=== PATIENT | female | born 1940 | race Caucasian/White ===

== ENCOUNTER → 2019-03-27 10:15 | Outpatient (BNVA) | payer MEDICARE, OTHER, SELFPAY | PROVIDERS: Family Provider Family Medicine; PCP Family Medicine; Visit Provider Family Medicine | DX: S52.612A Displaced fracture of left ulna styloid process, initial encounter for closed fracture (principal); S52.92XA Unspecified fracture of left forearm, initial encounter for closed fracture; W10.1XXA Fall (on)(from) sidewalk curb, initial encounter; M25.532 Pain in left wrist | CPT/HCPCS: 73130 ==

== ENCOUNTER → 2020-08-04 10:34 | Outpatient (BNVA) | payer MEDICARE, OTHER, SELFPAY | PROVIDERS: Family Provider Family Medicine; PCP Family Medicine; Visit Provider Family Medicine | DX: Z00.00 Encounter for general adult medical examination without abnormal findings (principal); E03.8 Other specified hypothyroidism; R51.9 Headache, unspecified; H81.10 Benign paroxysmal vertigo, unspecified ear | CPT/HCPCS: 80053; 84443; 85025 ==

== ENCOUNTER 2021-04-04 23:48 | Emergency (ER) | payer MEDICARE, OTHER, SELFPAY ==
[2021-04-05] VITALS: PULSE 96; RESP 22; TEMP 37.2; O2SAT 87
--- NOTE | 2021-04-05 00:05 | XRR_ITS ---
PROCEDURE INFORMATION: Exam: XR Chest Exam date and time: 04/05/2021 12:05 AM Age: 80 years old Clinical indication: Dyspnea; Additional info: SOB allergic rxn TECHNIQUE: Imaging protocol: XR of the chest. Views: 1 view. COMPARISON: CR Chest 1 [place] [id number] 05/08/2016 8:56 PM FINDINGS: Lungs: Emphysematous lung changes. Negative for space consolidation. Pleural spaces: Unremarkable. No pleural effusion. No pneumothorax. Heart/Mediastinum: Unremarkable. No cardiomegaly. Bones/joints: Multiple nonacute left posterior rib fractures. XR/XR chest 1V [id number] IMPRESSION: No focal acute pulmonary disease identified.
[2021-04-05] MEDS: diphenhydrAMINE 50 mg/mL SDV 1mL IVP (00:16)
[2021-04-05] MEDS: EPINEPHrine 1 mg/mL INJ (00:16)
[2021-04-05] MEDS: famotidine 20 mg/2 mL INJ 40 MG IVP (00:16)
[2021-04-05 00:20] LABS: Basophils % 0.3 %; Eosinophils # 0.1 10^3/uL (0.0-0.8); Eosinophils % 1.1 %; Hematocrit 53.5 % (37.0-47.0); Hemoglobin 17.9 g/dL (11.5-15.3); Lymphocytes # 4.1 10^3/uL (0.8-4.8); Lymphocytes % 42.6 %; Mean Corpuscular HGB Conc 33.5 g/dL (30.0-36.0); Mean Corpuscular Volume 92.7 fl (81-99); Mean Platelet Volume 11.1 fL (7.4-10.4); Monocytes # 0.5 10^3/uL (0.2-0.9); Monocytes % 5.5 %; Neutrophils # 4.83 10^3/uL (1.8-7.7); Neutrophils % 50.3 %; Nucleated Red Blood Cells % 0 %; Platelet Count 298 10^3/cmm (130-400); Red Blood Count 5.77 10^6/uL (4.1-5.3); White Blood Count 9.6 10^3/uL (4.0-10.0)
[2021-04-05] MEDS: LORazepam 2 mg/mL INJ 1 mL 0.5 MG IVP (00:20)
[2021-04-05 00:36] LABS: Alanine Aminotransferase 13 U/L (0-33); Albumin Level 4.7 g/dL (3.5-5.2); Alkaline Phosphatase 103 IU/L (35-105); Anion Gap 23.6 (5-19); Aspartate Amino Transferase 19 U/L (0-32); Blood Urea Nitrogen 20 mg/dL (8-23); Calcium 10.5 mg/dL (8.5-10.5); Carbon Dioxide 21 mmol/L (22-29); Chloride 101 mmol/L (98-107); Globulin 2.4 g/dL (1.3-4.6); Glucose 147 mg/dL (65-115); Osmolality Calculated 299 mOsm/kg (285-295); Potassium 3.6 mmol/L (3.5-5.1); Sodium 142 mmol/L (136-145); Total Bilirubin 0.3 mg/dL (0.15-1.2); Total Protein 7.1 g/dL (6.6-8.7)
[2021-04-05] MEDS: EPINEPHrine 1 mg/mL INJ 0.4 MG IM (00:51)
[2021-04-05 01:57] VITALS: BP 100/64; PULSE 72; RESP 16; O2SAT 95
--- NOTE | 2021-04-05 01:57 | ED_ITS ---
HPI - Allergic Reaction General: Chief complaint: Allergic Reaction Stated complaint: allergic reaction Time Seen by Provider: 04/05/21 00:00 Source: patient and family History of Present Illness: HPI narrative: 80-year-old female who ate a new restaurant around 630 this evening. At around 10 or 1030 she began to get an upset stomach. She vomited. She then began to itch. Widespread rash was noted. Trouble breathing came next, with a full feeling of her mouth and tongue. No treatment prior to arrival. She has not had the symptoms prior. Onset (ago): hour(s) Exposure: food Associated symptoms: Reports difficulty breathing, facial swelling, itching, lip swelling, nausea, rash, tongue swelling and vomiting; Deny abdominal pain or dysphagia Severity: moderate Treatment prior to arrival: none Previous Allergic Reaction History: none Review of Systems Const: Denies: fever(s) ENMT: Denies: throat pain Card: Denies: chest pain Resp: Reports: dyspnea; Denies: productive cough or non-productive cough GI: Reports: nausea and vomiting; Denies: abdominal pain or dysphagia Skin/Breast: Reports: rash Neuro: Denies: headache(s) All/Imm: Reports: tongue swelling and facial swelling PFSH ED PFSH: Medical History Benign positional vertigo Hypothalamic hypothyroidism Recurrent occipital headache Social History Smoking and tobacco status: never smoked Alcohol intake: current Alcohol intake frequency: holidays/special occasions only Physical Exam Const: GENERAL APPEARANCE: cooperative, in distress and ill appearing HENMT: COMMON NORMALS: normocephalic and Normal external nose present HEAD & SCALP: normocephalic FACE & SINUS: no edema NOSE: Normal external nose present and Normal nares present MOUTH: lip abnormal (Lower lip edema) and tongue abnormal edematous (Minimal) THROAT: posterior oropharynx normal Eye: COMMON NORMALS: Equal, round and reactive pupils present and EOMs intact bilaterally PUPIL: Yes Equal, round and reactive pupils present Neck/C-Spine: COMMON NORMALS: full ROM GENERAL: No anterior neck swelling Chest: COMMONS NORMALS: normal inspection of the chest Resp: EFFORT & INSPECTION: Yes tachypneic, Yes respiratory distress (Mild) and Yes uses accessory muscles AUSCULTATION: no rhonchi and no wheezes Cardio: COMMON NORMALS: regular rhythm RATE: tachycardic RHYTHM: regular rhythm GI: COMMON NORMALS: Normal to inspection, nondistended, normoactive bowel sounds present and Soft to palpation PALPATION: Yes Soft to palpation Neuro: CARLOS COMA SCALE: document GCS findings Carlos coma scale eye opening: Spontaneous Carlos coma scale verbal response: Orientated Carlos coma scale motor response: Obey commands Carlos coma scale total score: 15 Skin: NARRATIVE SKIN EXAM: Widespread papular rash present across chest, base of the neck, and some extremities Course Vital Signs: Vital signs: Vital Signs Temperature 98.9 F 04/05/21 00:00 Pulse Rate 72 04/05/21 01:57 Respiratory Rate 16 04/05/21 01:57 Blood Pressure 100/64 04/05/21 01:57 Pulse Oximetry 95 04/05/21 01:57 MDM - Allergic Reaction Medical Decision Making 80-year-old female with anaphylactoid type allergic reaction to likely some substance she ingested new [place] restaurant she ate out earlier in the evening. No exposure to drugs, new medications, new cleaning or hygiene products. Distress was significant on arrival. Patient was given 0.4 mg of subcutaneous epinephrine, 50 mg IV Benadryl, 40 mg IV Pepcid, and 125 mg Solu- Medrol. She was quite anxious and will shaky, so 0.5 mg Ativan IV was also used. Her symptoms are essentially resolved at this point. Saturations are 97% on room air, heart rate is 71 sinus. Laboratory shows a hemoglobin of 18, creatinine 1.1. BMP is otherwise essentially normal. Chest x-ray is normal. Lab Data : 04/05/21 00:03 04/05/21 00:03 Radiology Impressions Chest X-Ray 04/05/21 00:05 IMPRESSION: No focal acute pulmonary disease identified. Laboratory Results WBC 9.6 10^3/uL (4.0-10.0) 04/05/21 00:03 RBC 5.77 10^6/uL (4.1-5.3) H 04/05/21 00:03 Hgb 17.9 g/dL (11.5-15.3) H 04/05/21 00:03 Hct 53.5 % (37.0-47.0) H 04/05/21 00:03 MCV 92.7 fl (81-99) 04/05/21 00:03 MCH 31.0 pg (28.0-34.0) 04/05/21 00:03 MCHC 33.5 g/dL (30.0-36.0) 04/05/21 00:03 RDW 12.0 % (12.1-15.1) L 04/05/21 00:03 Plt Count 298 10^3/cmm (130-400) 04/05/21 00:03 MPV 11.1 fL (7.4-10.4) H 04/05/21 00:03 Neut % (Auto) 50.3 % 04/05/21 00:03 Lymph % (Auto) 42.6 % 04/05/21 00:03 [place] % (Auto) 5.5 % 04/05/21 00:03 Eos % (Auto) 1.1 % 04/05/21 00:03 Baso % (Auto) 0.3 % 04/05/21 00:03 Neut # (Auto) 4.83 10^3/uL (1.8-7.7) 04/05/21 00:03 Lymph # (Auto) 4.1 10^3/uL (0.8-4.8) 04/05/21 00:03 [place] # (Auto) 0.5 10^3/uL (0.2-0.9) 04/05/21 00:03 Eos # (Auto) 0.1 10^3/uL (0.0-0.8) 04/05/21 00:03 Baso # (Auto) 0.0 10^3/uL (0.0-0.1) 04/05/21 00:03 Nucleated RBC % (auto) 0 % 04/05/21 00:03 Nucleated RBCs # 0.0 /100WBC 04/05/21 00:03 Sodium 142 mmol/L (136-145) 04/05/21 00:03 Potassium 3.6 mmol/L (3.5-5.1) 04/05/21 00:03 Chloride 101 mmol/L (98-107) 04/05/21 00:03 Carbon Dioxide 21 mmol/L (22-29) L 04/05/21 00:03 Anion Gap 23.6 (5-19) H 04/05/21 00:03 BUN 20 mg/dL (8-23) 04/05/21 00:03 Creatinine 1.1 mg/dL (0.5-0.9) H 04/05/21 00:03 GFR Calculation Not Reportable 04/05/21 00:03 Glucose 147 mg/dL (65-115) H 04/05/21 00:03 Calculated Osmolality 299 mOsm/kg (285-295) H 04/05/21 00:03 Calcium 10.5 mg/dL (8.5-10.5) 04/05/21 00:03 Total Bilirubin 0.3 mg/dL (0.15-1.2) 04/05/21 00:03 AST 19 U/L (0-32) 04/05/21 00:03 ALT 13 U/L (0-33) 04/05/21 00:03 Alkaline Phosphatase 103 IU/L (35-105) 04/05/21 00:03 C-Reactive Protein 3.0 mg/L (0.0-4.9) 04/05/21 00:03 Total Protein 7.1 g/dL (6.6-8.7) 04/05/21 00:03 Albumin 4.7 g/dL (3.5-5.2) 04/05/21 00:03 Globulin 2.4 g/dL (1.3-4.6) 04/05/21 00:03 Critical Care Time Critical Care Time: Critical Care Time: Yes Total Critical Care Time: 36 Attestation: This case had a high probability of a clinically significant, sudden, or life threatening deterioration of this patient's condition which required my full and direct attention, intervention and personal management. Time is independent of any procedures performed. Discharge Plan Discharge Patient Disposition: Home Clinical Impression: Allergic reaction, Anaphylaxis Condition: Stable Prescriptions: New EpiPen 2-Jethro 0.3 mg/0.3 mL auto-injector 0.3 mg IM Q15M PRN (Reason: anaphylaxis) Qty: 2 0RF Rx Instructions: for 2 doses Benadryl 25 mg capsule 25 mg PO Q6H PRN (Reason: allergic reaction) Qty: 30 0RF Medrol (Jethro) 4 mg tablets,dose pack See Rx Instructions .ROUTE .COMPLEX Qty: 21 0RF Rx Instructions: orally per package directions No Action levothyroxine 100 mcg tablet See Rx Instructions .ROUTE .COMPLEX Qty: 90 2RF Dose Instruction: Take 1 tablet by mouth once daily Rx Instructions: Take 1 tablet by mouth once daily Discharge Orders: Discharge ED (Routine); Ordered 04/05/21 Ordered By: Yogi Wellington Referrals: Saray Breen MD [Primary Care Provider] - 1-3 days Patient Instructions: Anaphylaxis (ED), General Allergic Reaction (ED) Activity Restrictions/Additional Instructions: Medication as directed. Take the Medrol according to package instructions. Use Benadryl 25 mg every 6 hours for the next 48 hours, then as needed. Carry the EpiPen with you at all times, if you must use it, you must come to the emergency room following. return immediately to the emergency department for tongue or lip swelling, facial swelling or edema, significant change in your voice, shortness of breath, inability to control rash, any other concerning symptoms. Coding Level of Care Code ED Cathodic Protection Technician for Ignacio Fwd Exam Comprehensive
== END 2021-04-05 02:23 | disposition home or self-care (01) ==
PROVIDERS: Emergency Provider Emergency Medicine; PCP Family Medicine
DX: T78.2XXA Anaphylactic shock, unspecified, initial encounter (principal); T78.40XA Allergy, unspecified, initial encounter
CPT/HCPCS: 71045; 80053; 85025; 86140; 96372; 96374; 96375; 99283; J0171; J1200; J2060; J2930; J3490

== ENCOUNTER → 2021-04-06 15:48 | Outpatient (BNVA) | payer MEDICARE, OTHER, SELFPAY | PROVIDERS: PCP Family Medicine; Visit Provider Family Medicine | DX: D75.1 Secondary polycythemia (principal); T78.40XA Allergy, unspecified, initial encounter; H81.10 Benign paroxysmal vertigo, unspecified ear | CPT/HCPCS: 85018 ==

== ENCOUNTER 2021-06-17 20:41 | Emergency (ER) | payer MEDICARE, OTHER, SELFPAY ==
[2021-06-17 20:46] VITALS: BP 146/89; PULSE 71; RESP 16; TEMP 36.2; O2SAT 94
--- NOTE | 2021-06-17 21:00 | ED_ITS ---
HPI - Allergic Reaction General: Chief complaint: Allergic Reaction Stated complaint: Allergic reation Time Seen by Provider: 06/17/21 20:51 Source: patient Mode of arrival: ambulatory Limitations: no limitations History of Present Illness: HPI narrative: 80-year-old female states that she has noticed a rash to her legs slight rash to her arms been going on for 2 days states she had a bad allergic reaction back in March when she had tongue swelling in the past been having epinephrine. She states that the rash to her legs appeared yesterday after golfing there pruritic in nature denies any tongue swelling or shortness of breath slight rash to the arms she take Benadryl at home no improvement Associated symptoms: Deny abdominal pain, nausea or vomiting Review of Systems Const: Denies: fever(s), chills, body aches or change in appetite Eyes: Denies: blurry vision or eye discomfort ENMT: Denies: throat pain or dental pain Card: Denies: chest pain Resp: Denies: dyspnea GI: Denies: abdominal pain, nausea, vomiting or diarrhea : Denies: dysuria Musc: Denies: neck pain or back pain Skin/Breast: Reports: rash Neuro: Denies: headache(s) Psych: Denies: depression Joaquin/Lymph: Denies: easy bruising All/Imm: Denies: urticaria PFSH ED PFSH: Medical History Benign positional vertigo Hypothalamic hypothyroidism Recurrent occipital headache Social History Smoking and tobacco status: never smoked Alcohol intake: current Alcohol intake frequency: holidays/special occasions on ly Physical Exam Const: COMMON NORMALS: no acute distress, patient oriented x3 and healthy appearing HENMT: COMMON NORMALS: normocephalic and atraumatic HEAD & SCALP: normocephalic and atraumatic Eye: COMMON NORMALS: Equal, round and reactive pupils present and EOMs intact bilaterally PUPIL: Yes Equal, round and reactive pupils present Neck/C-Spine: COMMON NORMALS: full ROM and supple Chest: COMMONS NORMALS: normal inspection of the chest and normal palpation of entire chest wall Resp: COMMON NORMALS: normal respiratory effort, No retractions, No use of accessory muscles and clear to auscultation bilaterally AUSCULTATION: clear to auscultation bilaterally Cardio: COMMON NORMALS: regular rate, regular rhythm and No murmurs present (Cardio) RATE: regular rate RHYTHM: regular rhythm GI: COMMON NORMALS: Normal to inspection, nondistended, normoactive bowel sounds present, Soft to palpation, non-tender and no masses PALPATION: Yes Soft to palpation Extremity: COMMON NORMALS: normal to inspection and full ROM Neuro: COMMON NORMALS: patient oriented x3, moves all extremities and no focal motor deficits Psych: COMMON NORMALS: mental status grossly normal, Normal thought process present and cooperative THOUGHT PROCESS: Normal thought process present Skin: COMMON NORMALS: no wounds NARRATIVE SKIN EXAM: Maculopapular rash noted to bilateral legs slight rash to arms Course Vital Signs: Vital signs: Vital Signs Temperature 97.1 F L 06/17/21 20:46 Pulse Rate 59 L 06/17/21 23:18 Respiratory Rate 18 06/17/21 23:18 Blood Pressure 146/82 06/17/21 23:18 Pulse Oximetry 95 06/17/21 23:18 MDM - Allergic Reaction Medical Decision Making Patient presents here with an allergic reaction possibly a rash to her lower extremities that has improved here with Benadryl Pepcid and the steroid lotion the rash looks little vasculitic but it did improve with steroids we will get her follow-up with dermatology blood work here is all normal she had some she states dizziness she had this with her previous rash her head CT here is normal no signs of a stroke she is to follow-up with her PCP as well and return if worsening Lab Data : 06/17/21 21:00 06/17/21 21:[address] 06/17/21 22:43 IMPRESSION: No acute intracranial pathology identified by CT. Laboratory Results WBC 8.7 10^3/uL (4.0-10.0) 06/17/21 21:00 RBC 4.82 10^6/uL (4.1-5.3) 06/17/21 21:00 Hgb 15.3 g/dL (11.5-15.3) 06/17/21 21:00 Hct 46.2 % (37.0-47.0) 06/17/21 21:00 MCV 95.9 fl (81-99) 06/17/21 21:00 MCH 31.7 pg (28.0-34.0) 06/17/21 21:00 MCHC 33.1 g/dL (30.0-36.0) 06/17/21 21:00 RDW 12.3 % (12.1-15.1) 06/17/21 21:00 Plt Count 243 10^3/cmm (130-400) 06/17/21 21:00 MPV 11.3 fL (7.4-10.4) H 06/17/21 21:00 Neut % (Auto) 70.1 % 06/17/21 21:00 Lymph % (Auto) 20.5 % 06/17/21 21:00 [place] % (Auto) 7.7 % 06/17/21 21:00 Eos % (Auto) 1.0 % 06/17/21 21:00 Baso % (Auto) 0.5 % 06/17/21 21:00 Neut # (Auto) 6.07 10^3/uL (1.8-7.7) 06/17/21 21:00 Lymph # (Auto) 1.8 10^3/uL (0.8-4.8) 06/17/21 21:00 [place] # (Auto) 0.7 10^3/uL (0.2-0.9) 06/17/21 21:00 Eos # (Auto) 0.1 10^3/uL (0.0-0.8) 06/17/21 21:00 Baso # (Auto) 0.0 10^3/uL (0.0-0.1) 06/17/21 21:00 Nucleated RBC % (auto) 0 % 06/17/21 21:00 Nucleated RBCs # 0.0 /100WBC 06/17/21 21:00 Sodium 142 mmol/L (136-145) 06/17/21 21:00 Potassium 4.0 mmol/L (3.5-5.1) 06/17/21 21:00 Chloride 102 mmol/L (98-107) 06/17/21 21:00 Carbon Dioxide 26 mmol/L (22-29) 06/17/21 21:00 Anion Gap 18.0 (5-19) 06/17/21 21:00 BUN 17 mg/dL (8-23) 06/17/21 21:00 Creatinine 0.9 mg/dL (0.5-0.9) 06/17/21 21:00 GFR Calculation Not Reportable 06/17/21 21:00 Glucose 93 mg/dL (65-115) 06/17/21 21:00 Calculated Osmolality 295 mOsm/kg (285-295) 06/17/21 21:00 Calcium 9.8 mg/dL (8.5-10.5) 06/17/21 21:00 Total Bilirubin 0.4 mg/dL (0.15-1.2) 06/17/21 21:00 AST 19 U/L (0-32) 06/17/21 21:00 ALT 11 U/L (0-33) 06/17/21 21:00 Alkaline Phosphatase 72 IU/L (35-105) 06/17/21 21:00 Total Protein 7.5 g/dL (6.6-8.7) 06/17/21 21:00 Albumin 4.7 g/dL (3.5-5.2) 06/17/21 21:00 Globulin 2.8 g/dL (1.3-4.6) 06/17/21 21:00 Urine Color Yellow (Yellow) 06/17/21 21:50 Urine Appearance Sl hazy (CLEAR) 06/17/21 21:50 Urine pH 5 (5-7) 06/17/21 21:50 Ur Specific [place] 1.025 (1.005-1.030) 06/17/21 21:50 Urine Protein Neg (Negative) 06/17/21 21:50 Urine Glucose (UA) Norm (Normal) 06/17/21 21:50 Urine Ketones Negative (Negative) 06/17/21 21:50 Urine Blood Neg (Negative) 06/17/21 21:50 Urine Nitrate Negative (Negative) 06/17/21 21:50 Urine Bilirubin Neg (Negative) 06/17/21 21:50 Urine Urobilinogen Norm mg/dL (Negative) 06/17/21 21:50 Ur Leukocyte Esterase Negative (Negative) 06/17/21 21:50 Discharge Plan Discharge Clinical Impression: Rash Condition: Stable Prescriptions: New prednisone 50 mg tablet 50 mg PO DAILY Qty: 5 0RF Discontinued methylprednisolone [Medrol (Jethro)] 4 mg tablets,dose pack See Rx Instructions .ROUTE .COMPLEX Qty: 21 0RF Rx Instructions: orally per package directions No Action levothyroxine 100 mcg tablet See Rx Instructions .ROUTE .COMPLEX Qty: 90 2RF Dose Instruction: Take 1 tablet by mouth once daily Rx Instructions: Take 1 tablet by mouth once daily EpiPen 2-Jethro 0.3 mg/0.3 mL auto-injector 0.3 mg IM Q15M PRN (Reason: anaphylaxis) Qty: 2 0RF Rx Instructions: for 2 doses Benadryl 25 mg capsule 25 mg PO Q6H PRN (Reason: allergic reaction) Qty: 30 0RF Discharge Orders: Discharge ED (Routine); Ordered 06/17/21 Ordered By: Massimo Chaparro Referrals: Saray Breen MD [Primary Care Provider] - Beverly Bradley DO [Physician] - 1-3 days Discharge Diet: Advance as tolerated Discharge Activity: Resume usual activity Patient Instructions: Acute Rash (ED) Coding Level of Care Code ED Insulation Installer for Maryjaneg Fwd Exam Comprehensive
[2021-06-17] MEDS: diphenhydrAMINE 50 mg/mL SDV 1mL 25 MG IVP (21:07)
[2021-06-17] MEDS: famotidine 20 mg/2 mL INJ 40 MG IVP (21:07)
[2021-06-17 21:20] VITALS: BP 151/84; PULSE 66; RESP 18; O2SAT 96
[2021-06-17 21:24] LABS: Basophils % 0.5 %; Eosinophils # 0.1 10^3/uL (0.0-0.8); Hematocrit 46.2 % (37.0-47.0); Hemoglobin 15.3 g/dL (11.5-15.3); Lymphocytes # 1.8 10^3/uL (0.8-4.8); Lymphocytes % 20.5 %; Mean Corpuscular HGB Conc 33.1 g/dL (30.0-36.0); Mean Corpuscular Hemoglobin 31.7 pg (28.0-34.0); Mean Corpuscular Volume 95.9 fl (81-99); Mean Platelet Volume 11.3 fL (7.4-10.4); Monocytes # 0.7 10^3/uL (0.2-0.9); Monocytes % 7.7 %; Neutrophils # 6.07 10^3/uL (1.8-7.7); Neutrophils % 70.1 %; Nucleated Red Blood Cells % 0 %; Platelet Count 243 10^3/cmm (130-400); Red Blood Count 4.82 10^6/uL (4.1-5.3); Red Cell Distribution Width 12.3 % (12.1-15.1); White Blood Count 8.7 10^3/uL (4.0-10.0)
[2021-06-17 21:45] LABS: Alanine Aminotransferase 11 U/L (0-33); Albumin Level 4.7 g/dL (3.5-5.2); Alkaline Phosphatase 72 IU/L (35-105); Aspartate Amino Transferase 19 U/L (0-32); Blood Urea Nitrogen 17 mg/dL (8-23); Calcium 9.8 mg/dL (8.5-10.5); Carbon Dioxide 26 mmol/L (22-29); Chloride 102 mmol/L (98-107); Globulin 2.8 g/dL (1.3-4.6); Glucose 93 mg/dL (65-115); Osmolality Calculated 295 mOsm/kg (285-295); Sodium 142 mmol/L (136-145); Total Bilirubin 0.4 mg/dL (0.15-1.2); Total Protein 7.5 g/dL (6.6-8.7)
[2021-06-17 21:50] VITALS: BP 141/83; PULSE 64; RESP 18; O2SAT 96
[2021-06-17 22:15] LABS: Add Urine Microscopic? NO; Charge for UA Resulting for Rev
[2021-06-17 22:20] VITALS: BP 160/84; PULSE 57; RESP 18; O2SAT 98
[2021-06-17 22:32] LABS: Bilirubin Urine Neg (Negative); Blood Urine Neg (Negative); Glucose Urine UA Norm (Normal); Ketones Urine Negative (Negative); Leukocyte Esterase Urine Negative (Negative); Nitrate Urine Negative (Negative); Protein Urine Neg (Negative); Specific Gravity, Urine 1.025 (1.005-1.030); Urine Appearance SL Hazy (CLEAR); Urine Color Yellow (Yellow); Urobilinogen Urine Norm (Negative); pH Urine 5 (5-7)
[2021-06-17 22:42] VITALS: BP 171/79; PULSE 62; RESP 18; O2SAT 97
--- NOTE | 2021-06-17 22:43 | CTR_ITS ---
PROCEDURE INFORMATION: Exam: CT Head Without Contrast Exam date and time: 06/17/2021 11:07 PM Age: 80 years old Clinical indication: Walking, difficulty; Patient HX: C/O increased walking difficulty and keeping balance. ; Additional info: Difficulty walking TECHNIQUE: Imaging protocol: Computed tomography of the head without contrast. Radiation optimization: All CT scans at this facility use at least one of these dose optimization techniques: automated exposure control; mA and/or kV adjustment per patient size (includes targeted exams where dose is matched to clinical indication); or iterative reconstruction. COMPARISON: MR Head w wo Contrast 10/12/2016 8:17 AM RADIATION DOSE METRICS: Total DLP (mGy-cm): 739.75 FINDINGS: Brain: There are global involutional changes of the brain which are in keeping with the patient's age. There is no acute intracranial hemorrhage or abnormal extra-axial fluid collection identified. There is no intracranial mass effect or shift of midline structures. The subramanian-white differentiation is preserved throughout. There is no sulcal effacement. The basilar cisterns are open. Cerebral ventricles: No hydrocephalus or ventricular effacement. Paranasal sinuses: The visualized sinuses are unremarkable. Mastoid air cells: There is no mastoid effusion detected. Bones/joints: No calvarial fracture or destructive osseous lesions are seen. Soft tissues: Unremarkable. CT/CT head wo con* [id number] IMPRESSION: No acute intracranial pathology identified by CT.
[2021-06-17 23:18] VITALS: BP 146/82; PULSE 59; RESP 18; O2SAT 95
--- NOTE | 2021-06-18 00:08 | PC.NURSE ---
Pt states feeling much better than when arrived. Rash is still present.
[2021-06-18 00:14] VITALS: BP 148/68; PULSE 68; RESP 20; O2SAT 100
--- NOTE | 2021-06-18 12:52 | DCPLANNER ---
poker room manager had message to schedule a follow up appointment for patient with dermatology. poker room manager called patient to explain to patient that disease case manager is unable to refer patient to dermatology that patient will need to follow up with her primary care physician. poker room manager was unable to speak with patient at this time, a voicemail was left for patient to return telephonic nurse case manager phone call.
== END 2021-06-18 00:15 | disposition home or self-care (01) ==
PROVIDERS: Emergency Provider Emergency Medicine; PCP Family Medicine
DX: R21 Rash and other nonspecific skin eruption (principal); R42 Dizziness and giddiness
CPT/HCPCS: 70450; 80053; 81003; 85025; 96374; 96375; 99284; J1200; J2930; J3490

== ENCOUNTER → 2021-06-23 15:36 | Outpatient (BNVA) | payer MEDICARE, OTHER, SELFPAY | PROVIDERS: PCP Family Medicine; Visit Provider Dermatology | DX: I77.6 Arteritis, unspecified (principal); L81.4 Other melanin hyperpigmentation; L95.9 Vasculitis limited to the skin, unspecified | CPT/HCPCS: 86160; 86162; 86235; 86255; 86376 ==

== ENCOUNTER 2021-08-13 21:51 | Emergency (ER) | payer MEDICARE, OTHER, SELFPAY ==
[2021-08-13 22:25] VITALS: PULSE 72; RESP 16; TEMP 36.9; O2SAT 97
--- NOTE | 2021-08-13 23:13 | XRR_ITS ---
PROCEDURE INFORMATION: Exam: XR Chest Exam date and time: 08/14/2021 12:53 AM Age: 81 years old Clinical indication: Other: General weakness TECHNIQUE: Imaging protocol: Radiologic exam of the chest. Views: 1 view. COMPARISON: CR (CHEST, ) 04/05/2021 12:19 AM FINDINGS: Lungs: Emphysematous changes are seen bilaterally. There are increased interstitial opacity seen in lower hemithoraces bilaterally possibly representing atelectasis or perhaps mild pulmonary fibrosis. Bilateral basilar interstitial pneumonitis cannot be entirely excluded. Pleural spaces: Unremarkable. No pleural effusion. No pneumothorax. Heart/Mediastinum: Unremarkable. No cardiomegaly. Bones/joints: Unremarkable. XR/XR chest 1V portable [id number] IMPRESSION: There is a background emphysema. Subtle increased interstitial opacities are seen the lower hemithoraces possibly representing pulmonary fibrosis or atelectasis although bilateral basilar interstitial pneumonitis cannot be entirely excluded.
--- NOTE | 2021-08-13 23:14 | ECG_ITS ---
[facility] Test Date: 2021-08-13 Pat Name: Jayne Pepper Department: Room: Gender: Female Team Psychologist: : 1940 Requested By: Dillon Nunez Order Number: [id number] Nicole MD: Jacques Daley M.D. Measurements Intervals [place] Rate: 57 P: -31 WI: 186 QRS: 28 QRSD: 97 T: 42 QT: 422 QTc: 414 Interpretive Statements SINUS BRADYCARDIA Compared to ECG 05/09/2016 00:30:11 Sinus rhythm no longer present Electronically Signed On 08-14-2021 18:18:03 CDT by Jacques Daley M.D. [email or web address] Networksmercy [email or web address]. [email or web address] boardman [id number]
[2021-08-13 23:22] LABS: Basophils # 0.1 10^3/uL (0.0-0.1); Basophils % 0.8 %; Eosinophils # 0.2 10^3/uL (0.0-0.8); Eosinophils % 2.8 %; Hematocrit 44.6 % (37.0-47.0); Hemoglobin 15.4 g/dL (11.5-15.3); Lymphocytes # 2.3 10^3/uL (0.8-4.8); Lymphocytes % 29.8 %; Mean Corpuscular HGB Conc 34.5 g/dL (30.0-36.0); Mean Corpuscular Hemoglobin 31.8 pg (28.0-34.0); Mean Platelet Volume 12.2 fL (7.4-10.4); Monocytes # 0.7 10^3/uL (0.2-0.9); Monocytes % 9.6 %; Neutrophils # 4.39 10^3/uL (1.8-7.7); Neutrophils % 56.7 %; Nucleated Red Blood Cells % 0 %; Platelet Count 228 10^3/cmm (130-400); Red Blood Count 4.85 10^6/uL (4.1-5.3); White Blood Count 7.7 10^3/uL (4.0-10.0)
[2021-08-13 23:48] LABS: Alanine Aminotransferase 20 U/L (0-33); Albumin Level 4.6 g/dL (3.5-5.2); Alkaline Phosphatase 73 IU/L (35-105); Anion Gap 17.7 (5-19); Aspartate Amino Transferase 23 U/L (0-32); Blood Urea Nitrogen 15 mg/dL (8-23); Calcium 9.7 mg/dL (8.5-10.5); Carbon Dioxide 26 mmol/L (22-29); Chloride 101 mmol/L (98-107); Globulin 2.5 g/dL (1.3-4.6); Glucose 85 mg/dL (65-115); Osmolality Calculated 292 mOsm/kg (285-295); Potassium 3.7 mmol/L (3.5-5.1); Sodium 141 mmol/L (136-145); Total Bilirubin 0.3 mg/dL (0.15-1.2); Total Protein 7.1 g/dL (6.6-8.7)
[2021-08-13 23:49] LABS: Troponin(5th) Baseline 6 ng/L (0-10)
--- NOTE | 2021-08-14 00:23 | W.ED.GENADLT ---
HPI - General Adult General: Chief complaint: General Medical Stated complaint: shaking, trouble walking Time Seen by Provider: 08/13/21 23:31 Source: patient Mode of arrival: ambulatory Limitations: no limitations History of Present Illness: 81-year-old female who states that since a year ago March she has been having these dizziness spells along with allergic reactions. States she will get a rash and tingling and feel lightheaded and has these jerking movements. She states that tonight she started to have just suddenly jerking movements in her hands arms and legs. She states she took a Benadryl at home and now is completely resolved. She denies any tongue swelling or rash denies any complaints at this time she states she feels back to baseline. Associated symptoms: Deny chest pain, dyspnea, headache(s), nausea, rash or vomiting Review of Systems Const: Denies: fever(s), chills, body aches or change in appetite Eyes: Denies: blurry vision or eye discomfort ENMT: Denies: throat pain or dental pain Card: Denies: chest pain Resp: Denies: dyspnea GI: Denies: abdominal pain, nausea, vomiting or diarrhea : Denies: dysuria Musc: Denies: neck pain or back pain Skin/Breast: Denies: rash Neuro: Denies: headache(s) Psych: Denies: depression Joaquin/Lymph: Denies: easy bruising All/Imm: Denies: urticaria PFSH ED PFSH: Medical History Benign positional vertigo Hypothalamic hypothyroidism Recurrent occipital headache Surgical History History of appendectomy History of foot surgery History of tubal ligation Social History Smoking and tobacco status: never smoked Alcohol intake: current Alcohol intake frequency: holidays/special occasions only Physical Exam Const: COMMON NORMALS: no acute distress, patient oriented x3 and healthy appearing HENMT: COMMON NORMALS: normocephalic and atraumatic HEAD & SCALP: normocephalic and atraumatic Eye: COMMON NORMALS: Equal, round and reactive pupils present and EOMs intact bilaterally PUPIL: Yes Equal, round and reactive pupils present Neck/C-Spine: COMMON NORMALS: full ROM and supple Chest: COMMONS NORMALS: normal inspection of the chest and normal palpation of entire chest wall Resp: COMMON NORMALS: normal respiratory effort, No retractions, No use of accessory muscles and clear to auscultation bilaterally AUSCULTATION: clear to auscultation bilaterally Cardio: COMMON NORMALS: regular rate, regular rhythm and No murmurs present (Cardio) RATE: regular rate RHYTHM: regular rhythm GI: COMMON NORMALS: Normal to inspection, nondistended, normoactive bowel sounds present, Soft to palpation, non-tender and no masses PALPATION: Yes Soft to palpation Extremity: COMMON NORMALS: normal to inspection and full ROM Neuro: COMMON NORMALS: patient oriented x3, moves all extremities and no focal motor deficits Psych: COMMON NORMALS: mental status grossly normal, Normal thought process present and cooperative THOUGHT PROCESS: Normal thought process present Skin: COMMON NORMALS: no rashes or lesions noted and no wounds GENERAL SKIN EXAM: no rashes or lesions noted Course Vital Signs: Vital signs: Vital Signs Temperature 98.4 F 08/13/21 22:25 Pulse Rate 72 08/13/21 22:25 Respiratory Rate 16 08/13/21 22:25 Pulse Oximetry 97 08/13/21 22:25 [facility] - General Adult Medical Decision Making Patient presents with involuntary jerking movements at home it since been resolved with Benadryl has had a history of some vertigo as well she actually has follow-up with a neurologist in a week she is to follow-up as scheduled she is well-appearing here labs are normal she is at her baseline she is stable for discharge. Lab Data : 08/13/21 22:44 08/13/21 22:44 Laboratory Results WBC 7.7 10^3/uL (4.0-10.0) 08/13/21 22:44 RBC 4.85 10^6/uL (4.1-5.3) 08/13/21 22:44 Hgb 15.4 g/dL (11.5-15.3) H 08/13/21 22:44 Hct 44.6 % (37.0-47.0) 08/13/21 22:44 MCV 92.0 fl (81-99) 08/13/21 22:44 MCH 31.8 pg (28.0-34.0) 08/13/21 22:44 MCHC 34.5 g/dL (30.0-36.0) 08/13/21 22:44 RDW 12.0 % (12.1-15.1) L 08/13/21 22:44 Plt Count 228 10^3/cmm (130-400) 08/13/21 22:44 MPV 12.2 fL (7.4-10.4) H 08/13/21 22:44 Neut % (Auto) 56.7 % 08/13/21 22:44 Lymph % (Auto) 29.8 % 08/13/21 22:44 Robertson % (Auto) 9.6 % 08/13/21 22:44 Eos % (Auto) 2.8 % 08/13/21 22:44 Baso % (Auto) 0.8 % 08/13/21 22:44 Neut # (Auto) 4.39 10^3/uL (1.8-7.7) 08/13/21 22:44 Lymph # (Auto) 2.3 10^3/uL (0.8-4.8) 08/13/21 22:44 Robertson # (Auto) 0.7 10^3/uL (0.2-0.9) 08/13/21 22:44 Eos # (Auto) 0.2 10^3/uL (0.0-0.8) 08/13/21 22:44 Baso # (Auto) 0.1 10^3/uL (0.0-0.1) 08/13/21 22:44 Nucleated RBC % (auto) 0 % 08/13/21 22:44 Nucleated RBCs # 0.0 /100WBC 08/13/21 22:44 Sodium 141 mmol/L (136-145) 08/13/21 22:44 Potassium 3.7 mmol/L (3.5-5.1) 08/13/21 22:44 Chloride 101 mmol/L (98-107) 08/13/21 22:44 Carbon Dioxide 26 mmol/L (22-29) 08/13/21 22:44 Anion Gap 17.7 (5-19) 08/13/21 22:44 BUN 15 mg/dL (8-23) 08/13/21 22:44 Creatinine 1.0 mg/dL (0.5-0.9) H 08/13/21 22:44 GFR Calculation Not Reportable 08/13/21 22:44 Glucose 85 mg/dL (65-115) 08/13/21 22:44 Calculated Osmolality 292 mOsm/kg (285-295) 08/13/21 22:44 Calcium 9.7 mg/dL (8.5-10.5) 08/13/21 22:44 Total Bilirubin 0.3 mg/dL (0.15-1.2) 08/13/21 22:44 AST 23 U/L (0-32) 08/13/21 22:44 ALT 20 U/L (0-33) 08/13/21 22:44 Alkaline Phosphatase 73 IU/L (35-105) 08/13/21 22:44 Troponin T Baseline 6 ng/L (0-10) 08/13/21 22:44 Total Protein 7.1 g/dL (6.6-8.7) 08/13/21 22:44 Albumin 4.6 g/dL (3.5-5.2) 08/13/21 22:44 Globulin 2.5 g/dL (1.3-4.6) 08/13/21 22:44 EKG Data EKG 1: I personally reviewed and interpreted this EKG as follows: EKG interpretation date: 08/13/21 EKG interpretation time: 22:34 Interpretation: sinus francheska hr [address] or t wave abnormalities qrs 97 qtc 417 Discharge Plan Discharge Patient Disposition: Home Clinical Impression: Involuntary jerky movements Condition: Stable Prescriptions: No Action levothyroxine 100 mcg tablet 100 mcg PO DAILY Qty: 102 0RF Rx Instructions: 2 pills once a week. 1 pill daily remaining days. diphenhydramine HCl [Banophen] 25 mg capsule 25 mg PO TID PRN (Reason: allergy symptoms) Qty: 30 0RF prednisone 10 mg tablet 10 mg PO DAILY Qty: 60 0RF Rx Instructions: Take 5 tabs by mouth for 4 days, then 4 tabs x 4 days, 3 tabs x 4 days, 2 tabs x 4 days, then 1 tab x 4 days EpiPen 2-Jethro 0.3 mg/0.3 mL auto-injector 0.3 mg IM Q15M PRN (Reason: anaphylaxis) Qty: 2 0RF Rx Instructions: for 2 doses Discharge Orders: Discharge ED (Routine); Ordered 08/14/21 Ordered By: Massimo Chaparro Referrals: Saray Breen MD [Primary Care Provider] - Discharge Diet: Advance as tolerated Discharge Activity: Resume usual activity Patient Instructions: Vertigo (ED) Coding Level of Care Code ED Judge for Chg Fwd Exam Comprehensive
[2021-08-14 01:03] VITALS: BP 144/53; PULSE 59; RESP 18; O2SAT 97
== END 2021-08-14 01:00 | disposition home or self-care (01) ==
PROVIDERS: Nurse Practitioner Family; Emergency Provider Emergency Medicine; PCP Family Medicine
DX: R25.9 Unspecified abnormal involuntary movements (principal)
CPT/HCPCS: 71045; 80053; 84484; 85025; 93005; 99285

== ENCOUNTER → 2021-08-19 09:22 | Outpatient (BNVA) | payer MEDICARE, OTHER, SELFPAY | PROVIDERS: PCP Family Medicine; Visit Provider Internal Medicine Rheumatology | DX: R76.8 Other specified abnormal immunological findings in serum (principal); R25.8 Other abnormal involuntary movements; I95.1 Orthostatic hypotension; I10 Essential (primary) hypertension; Z79.899 Other long term (current) drug therapy | CPT/HCPCS: 36415; 86036; 86376; 86800; 99204 ==

== ENCOUNTER → 2021-09-07 12:30 | Outpatient (BNVA) | payer MEDICARE, OTHER, SELFPAY | PROVIDERS: PCP Family Medicine; Visit Provider Family Medicine | DX: M32.19 Other organ or system involvement in systemic lupus erythematosus (principal); R25.1 Tremor, unspecified; G25.5 Other chorea; R51.9 Headache, unspecified | CPT/HCPCS: 84439; 84443; 85651; 86140 ==

== ENCOUNTER 2021-09-18 15:31 | Outpatient (CLI) | payer MEDICARE, OTHER, SELFPAY ==
--- NOTE | 2021-09-18 16:00 | MR_ITS ---
WS: [id number] MRI HEAD WITHOUT CONTRAST TECHNIQUE: Sagittal T1, T2 axial, T2 axial FLAIR, axial and coronal T1 images, axial susceptibility w eighted imaging, axial diffusion weighted images, and coronal T2 images were obtained. CLINICAL INFORMATION: progressive dystonia COMPARISON: CT June 17, 2021 and MRI FINDINGS: No evidence of restricted diffusion to suggest acute ischemia. Ventricular system and basal cisterns are patent. Minimal small vessel changes. Mild parenchymal volume loss. Normal posterior fossa. Ambika l vascular flow voids at the skull base. No extra-axial fluid collections. No evidence of mass or mas s effect. Paranasal sinuses and mastoid air cells are well aerated. No hemosiderin on the susceptibility weight ed images. Normal optic chiasm and pituitary infundibulum. Temporal lobes and hippocampal formations are normal in appearance. MR/MR head wo con* [id number] IMPRESSION: 1. No evidence of restricted diffusion to suggest acute ischemia. 2. Minimal small vessel changes. Mild parenchymal volume loss. 3. No other suspicious intracranial signal abnormalities. 4. No hemosiderin on susceptibly weighted images. 5. No significant changes since 2017.
== END 2021-09-18 15:32 | disposition home or self-care (01) ==
LOC: RAD 15:32
PROVIDERS: PCP Family Medicine; Visit Provider Family Medicine
DX: M32.19 Other organ or system involvement in systemic lupus erythematosus (principal)
CPT/HCPCS: 70551

== ENCOUNTER → 2021-09-25 13:37 | Outpatient (BNVA) | payer MEDICARE, OTHER, SELFPAY | PROVIDERS: PCP Family Medicine; Referring Provider Family Medicine; Visit Provider Specialist | DX: G25.5 Other chorea (principal); R76.8 Other specified abnormal immunological findings in serum; J44.9 Chronic obstructive pulmonary disease, unspecified | CPT/HCPCS: 99205 ==

== ENCOUNTER → 2021-10-15 10:18 | Outpatient (BNVA) | payer MEDICARE, OTHER, SELFPAY | PROVIDERS: PCP Family Medicine; Referring Provider Family Medicine; Visit Provider Specialist | DX: R56.9 Unspecified convulsions (principal) | CPT/HCPCS: 95812; 95816 ==

== ENCOUNTER 2021-10-22 16:10 | Outpatient (CLI) | payer MEDICARE, OTHER, SELFPAY ==
--- NOTE | 2021-10-22 13:45 | CTR_ITS ---
PROCEDURE INFORMATION: Exam: CT Chest Without Contrast; Diagnostic Exam date and time: 10/22/2021 4:43 PM Age: 81 years old Clinical indication: Other: Tremors, weakness; Additional info: G25.5 - other chorea TECHNIQUE: Imaging protocol: Diagnostic computed tomography of the chest without contrast. Radiation optimization: All CT scans at this facility use at least one of these dose optimization techniques: automated exposure control; mA and/or kV adjustment per patient size (includes targeted exams where dose is matched to clinical indication); or iterative reconstruction. COMPARISON: CR XR chest 1V portable [id number] 08/14/2021 12:53 AM RADIATION DOSE METRICS: Total DLP (mGy-cm): 528.72 FINDINGS: Lungs: The lungs demonstrate no focal airspace opacification. Pleural spaces: No pleural effusion. No pneumothorax. Heart: The heart is within normal limits for size. There is no evidence of pericardial abnormality. No coronary artery calcifications noted. Lymph nodes: The supraclavicular region appears normal. There are no enlarged lymph nodes in the axilla. There are no enlarged lymph nodes in the mediastinal or hilar regions. Vasculature: Unremarkable. No aortic aneurysm. Bones/joints: Lytic well-marginated, nonaggressive appearing lesion in the T3 vertebral body. Healed old posterior 7th, 8th, and 9th rib fractures. Soft tissues: Unremarkable. CT/CT chest [facility] [id number] IMPRESSION: No acute thoracic abnormality identified.
== END 2021-10-22 16:11 | disposition home or self-care (01) ==
LOC: RAD 16:13
PROVIDERS: PCP Family Medicine; Visit Provider Specialist
DX: G25.5 Other chorea (principal); M32.19 Other organ or system involvement in systemic lupus erythematosus
CPT/HCPCS: 71250

== ENCOUNTER → 2021-11-10 08:16 | Outpatient (BNVA) | payer MEDICARE, OTHER, SELFPAY | PROVIDERS: PCP Family Medicine; Visit Provider Specialist | DX: F44.5 Conversion disorder with seizures or convulsions (principal) | CPT/HCPCS: 99213; 99214 ==

== ENCOUNTER → 2022-03-29 10:28 | Outpatient (BNVA) | payer MEDICARE, OTHER, SELFPAY | PROVIDERS: PCP Family Medicine; Visit Provider Specialist | DX: R76.8 Other specified abnormal immunological findings in serum; Z09 Encounter for follow-up examination after completed treatment for conditions other than malignant neoplasm | CPT/HCPCS: 99213 ==

== ENCOUNTER 2022-08-04 10:09 | Outpatient (RCR) | payer MEDICARE, OTHER, SELFPAY | END 2022-08-06 23:59 | disposition home or self-care (01) | LOC: SPT 10:09 | PROVIDERS: PCP Family Medicine; Visit Provider Family Medicine | DX: H81.10 Benign paroxysmal vertigo, unspecified ear (principal) | CPT/HCPCS: 95992; 97161 ==

== ENCOUNTER 2022-08-07 06:00 | Outpatient (RCR) | payer MEDICARE, OTHER, SELFPAY | END 2022-08-11 23:59 | disposition home or self-care (01) | LOC: SPT 06:00 | PROVIDERS: PCP Family Medicine; Visit Provider Family Medicine | DX: H81.10 Benign paroxysmal vertigo, unspecified ear (principal) | CPT/HCPCS: 95992 ==

== ENCOUNTER → 2022-08-19 08:41 | Outpatient (BNVA) | payer MEDICARE, OTHER, SELFPAY | PROVIDERS: PCP Family Medicine; Visit Provider Dermatology | DX: L57.0 Actinic keratosis (principal); L82.0 Inflamed seborrheic keratosis; L82.1 Other seborrheic keratosis; D22.5 Melanocytic nevi of trunk; L57.8 Other skin changes due to chronic exposure to nonionizing radiation; L81.4 Other melanin hyperpigmentation | CPT/HCPCS: 17000; 17003; 99213 ==

== ENCOUNTER → 2022-08-23 11:11 | Outpatient (BNVA) | payer MEDICARE, OTHER, SELFPAY | PROVIDERS: PCP Family Medicine; Visit Provider Internal Medicine Rheumatology | DX: R76.8 Other specified abnormal immunological findings in serum (principal); R25.8 Other abnormal involuntary movements; I10 Essential (primary) hypertension | CPT/HCPCS: 99213 ==

== ENCOUNTER → 2023-03-08 14:03 | Outpatient (BNVA) | payer MEDICARE, OTHER, SELFPAY | PROVIDERS: PCP Family Medicine; Visit Provider Dermatology | DX: L82.1 Other seborrheic keratosis (principal); D22.5 Melanocytic nevi of trunk; L57.8 Other skin changes due to chronic exposure to nonionizing radiation; L81.4 Other melanin hyperpigmentation; L57.0 Actinic keratosis | CPT/HCPCS: 17000; 99213 ==

== ENCOUNTER → 2023-03-29 10:10 | Outpatient (BNVA) | payer MEDICARE, OTHER, SELFPAY | PROVIDERS: PCP Family Medicine; Visit Provider Specialist | DX: R29.90 Unspecified symptoms and signs involving the nervous system (principal); G25.5 Other chorea; R76.8 Other specified abnormal immunological findings in serum | CPT/HCPCS: 99212 ==

== ENCOUNTER 2023-04-27 11:37 | Emergency (ER) | payer MEDICARE, OTHER, SELFPAY ==
[2023-04-27 11:45] VITALS: BP 150/84; PULSE 66; RESP 16; TEMP 36.5; O2SAT 94
--- NOTE | 2023-04-27 12:22 | ED_ITS ---
HPI - Fall General: Chief Complaint: Fall Stated Complaint: Fall, hit head Time Seen by Provider: 04/27/23 12:18 Source: patient Mode of arrival: ambulatory Limitations: no limitations History of Present Illness: 82-year-old female states that she had t ripped walking and fell backwards and hit her head on the pavement. States this happened an hour ago she denies any loss conscious states she has a mild headache she rates a 3 out of 10. She is not on any blood thinners denies any neck pain denies any other injuries Associated symptoms-after fall: Reports headache(s); Denies abdominal pain, chest pain or neck pain Review of Systems Const: Denies: fever(s), chills, body aches or change in appetite ENMT: Denies: throat pain or dental pain Card: Denies: chest pain Resp: Denies: dyspnea GI: Denies: abdominal pain, nausea, vomiting or diarrhea Musc: Denies: neck pain or back pain Skin/Breast: Denies: rash Neuro: Reports: headache(s) PFSH ED PFSH: Medical History HTN (hypertension), benign Orthostatic hypotension Skin rash Positive UDAY (antinuclear antibody) Benign positional vertigo Recurrent occipital headache Hypothalamic hypothyroidism Surgical History History of foot surgery History of appendectomy History of tubal ligation Social History Smoking and tobacco/nicotine status: never used tobacco/nicotine Alcohol intake: current Alcohol intake frequency: holidays/special occasions only Substance/Drug Use: never Physical Exam Const: COMMON NORMALS: no acute distress, patient oriented x3 and healthy appearing HENMT: COMMON NORMALS: normocephalic HEAD & SCALP: normocephalic OTHER: Hematoma to posterior scalp Eye: COMMON NORMALS: Equal, round and reactive pupils present and EOMs intact bilaterally PUPIL: Yes Equal, round and reactive pupils present Neck/C-Spine: COMMON NORMALS: full ROM and supple Chest: COMMONS NORMALS: normal inspection of the chest Resp: COMMON NORMALS: normal respiratory effort Cardio: COMMON NORMALS: regular rate, regular rhythm and No murmurs present (Cardio) RATE: regular rate RHYTHM: regular rhythm Extremity: COMMON NORMALS: normal to inspection and full ROM Neuro: COMMON NORMALS: patient oriented x3, moves all extremities and no focal motor deficits Psych: COMMON NORMALS: mental status grossly normal, Normal thought process p resent and cooperative THOUGHT PROCESS: Normal thought process present Skin: COMMON NORMALS: no rashes or lesions noted and no wounds GENERAL SKIN EXAM: no rashes or lesions noted Course Vital Signs: Vital signs: Vital Signs Temperature 97.7 F 04/27/23 11:45 Pulse Rate 66 04/27/23 11:45 Respiratory Rate 16 04/27/23 11:45 Blood Pressure 150/84 04/27/23 11:45 Pulse Oximetry 94 04/27/23 11:45 Oxygen Delivery Me thod Room Air 04/27/23 11:45 MDM - Fall Medical Decision Making Patient presents with closed head injury after fall head CT here is normal she is well-appearing here she is stable for discharge she is follow-up with PCP and return if worsening. Medical Records I reviewed the patient's medical records. Lab Data Radiology Impressions Head CT 04/27/23 12:22 IMPRESSION: No acute intracranial abnormality. If symptoms persist, consider further evaluation with MRI, if MRI is clinically safe to obtain. All radiology interpretation(s) finalized by discharge Discharge Plan Discharge Patient Disposition: Home Clinical Impression: CHI (closed head injury) Qualifiers: Encounter type: initial encounter Qualified Code(s): S09.90XA - Unspecified injury of head, initial encounter Condition: Stable Prescriptions: No Action multivit with min-folic acid [Adult Multivitamin Gummies] 120 mcg tablet,chewable 1 tab PO DAILY oxycodone-acetaminophen 5-325 mg tablet 1 tab PO Q6H PRN (Reason: pain) 7 Days Qty: 28 0RF ICaps AREDS [id number] capsule 1 cap PO BID levothyroxine 100 mcg tablet 100 mcg PO DAILY Qty: 102 3RF epinephrine [EpiPen 2-Jethro] 0.3 mg/0.3 mL auto-injector 0.3 mg IM Q15M PRN (Reason: anaphylaxis) Qty: 2 0RF Rx Instructions: for 2 doses latanoprost 0.005 % drops 1 drp ophthalmic (eye) QPM Discharge Orders: Discharge ED (Routine); Ordered 04/27/23 Ordered By: Massimo Chaparro Referrals: Saray Breen MD [Primary Care Provider] - 4-7 days Discharge Diet: Advance as tolerated Discharge Activity: Resume usual activity Patient Instructions: Head Injury (ED) Coding Level of Care Code 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
--- NOTE | 2023-04-27 12:22 | CTR_ITS ---
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 Radiation optimization: All CT scans at this facility use at least one of these dose optimization techniques: automated exposure control; mA and/or kV adjustment per patient size (includes targeted exams where dose is matched to clinical indication); or iterative reconstruction. COMPARISON: MR head wo con* [id number] 09/18/2021 3:45 PM RADIATION DOSE METRICS: Total DLP (mGy-cm): 1036.28 FINDINGS: Brain: No acute intracranial hemorrhage. No confluent lobar infarct. No mass effect. No significant nonspecific white matter disease. Cerebral ventricles: The ventricles and sulci are normal in size and shape for the patient's stated age. Paranasal sinuses: Visualized sinuses are unremarkable. No fluid levels. Mastoid air cells: Visualized mastoid air cells are well aerated. Bones/joints: Unremarkable. No acute fracture. Soft tissues: Visualized soft tissues are unremarkable. CT/CT head wo con* [id number] IMPRESSION: No acute intracranial abnormality. If symptoms persist, consider further evaluation with MRI, if MRI is clinically safe to obtain.
[2023-04-27] MEDS: acetaminophen 325 mg Tablet 650 MG PO (12:58)
[2023-04-27 13:53] VITALS: BP 160/93; PULSE 56; O2SAT 96
== END 2023-04-27 13:00 | disposition home or self-care (01) ==
PROVIDERS: Emergency Provider Emergency Medicine; PCP Family Medicine
DX: S00.03XA Contusion of scalp, initial encounter (principal); I10 Essential (primary) hypertension; W01.0XXA Fall on same level from slipping, tripping and stumbling without subsequent striking against object, initial encounter
CPT/HCPCS: 70450; 99284

== ENCOUNTER → 2023-05-02 12:57 | Outpatient (BNVA) | payer MEDICARE, OTHER, SELFPAY | PROVIDERS: PCP Family Medicine; Visit Provider Family Medicine | DX: F44.5 Conversion disorder with seizures or convulsions (principal); E03.8 Other specified hypothyroidism; H81.10 Benign paroxysmal vertigo, unspecified ear | CPT/HCPCS: 80053; 82607; 84443; 85025 ==

== ENCOUNTER → 2023-05-04 15:03 | Outpatient (BNVA) | payer MEDICARE, OTHER, SELFPAY | PROVIDERS: PCP Family Medicine; Visit Provider Specialist | DX: S06.0XAA Concussion with loss of consciousness status unknown, initial encounter (principal); R26.9 Unspecified abnormalities of gait and mobility; R29.90 Unspecified symptoms and signs involving the nervous system; W19.XXXA Unspecified fall, initial encounter | CPT/HCPCS: 99215 ==

== ENCOUNTER 2023-05-23 09:10 | Outpatient (CLI) | payer MEDICARE, OTHER, SELFPAY ==
--- NOTE | 2023-05-23 09:30 | MR_ITS ---
WS: [id number] MRI BRAIN WITHOUT CONTRAST HISTORY: S06.0XAA - Concussion with loss of consciousness status u... COMPARISON: MRI 09/18/2021, head CT 04/27/2023, head CT 06/17/2021 TECHNIQUE: Diffusion imaging, multiplanar T1, T2 and FLAIR imaging obtained. Acute diffusion abnormality is noted within the RIGHT hinojosa radiata and centrum semiovale. Diffusion abnormality extends into the RIGHT frontal lobe and the basal ganglia. No additional diffusion abnor malities. The ADC map has nearly returned to normal. Increased T2 signal in the level of the infarct. Prior remote infarct in the anterior RIGHT temporal lobe. No diffusion abnormality present. Volume l oss in the anterior RIGHT temporal lobe. Multiple small prior lacunar infarcts in the RIGHT watershed distribution. Mild volume loss RIGHT temporal lobe from the prior infarct. Very minimal small vessel ischemic franklin es in the LEFT cerebrum. Ventricles and extra-axial spaces are normal. No inferior displacement of cerebellar tonsils. The sella turcica and pituitary gland are unremarkabl e. Dural venous sinuses and [place] demonstrate no abnormality on this unenhanced studies. Flow voids appear intact. No asymmetry in size of the middle cerebral arteries. Paranasal sinuses: Clear. Mastoid air cells: Normal. Calvarium and scalp: Intact. IMPRESSION: 1. 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 No hemorrhage. 2. Acute infarct is superimposed on prior ischemic changes and prior infarct in the anterior RIGHT t emporal lobe. Additional small lacunar type infarcts in the RIGHT basal ganglia. The chronic infarct is new since 06/17/2021. 3. Flow voids appear appropriate within the [place]. Recommend evaluation of the carotid art eries. Recommend evaluation of the carotid arteries.
== END 2023-05-23 09:11 ==
LOC: RAD 09:11
PROVIDERS: PCP Family Medicine; Visit Provider Specialist
DX: S06.0X1D Concussion with loss of consciousness of 30 minutes or less, subsequent encounter (principal); X58.XXXD Exposure to other specified factors, subsequent encounter
CPT/HCPCS: 70551; 95816

== ENCOUNTER → 2023-06-24 12:47 | Outpatient (BNVA) | payer MEDICARE, OTHER, SELFPAY | PROVIDERS: PCP Family Medicine; Visit Provider Specialist | DX: S06.0XAA Concussion with loss of consciousness status unknown, initial encounter (principal); R51.9 Headache, unspecified; R26.9 Unspecified abnormalities of gait and mobility; I10 Essential (primary) hypertension; I95.1 Orthostatic hypotension; R29.90 Unspecified symptoms and signs involving the nervous system; X58.XXXA Exposure to other specified factors, initial encounter | CPT/HCPCS: 99214; 99215 ==

== ENCOUNTER 2023-07-05 14:58 | Outpatient (CLI) | payer MEDICARE, OTHER, SELFPAY ==
--- NOTE | 2023-07-05 15:15 | MR_ITS ---
WS: [id number] MRA CAROTID ARTERIES HISTORY: I63.511 - Cerebral infarction due to unspecified occlusio... COMPARISON: None available. TECHNIQUE: MRA is performed with intravenous gadolinium. MIP and source images are reviewed. Right: Normal cervical carotid artery. Normal bifurcation. No stenosis at the bifurcation. Internal a nd external carotid arteries are patent. Left: Normal cervical carotid artery. Normal bifurcation. No stenosis or plaque at the bifurcation. I nternal and external carotid arteries are patent. Subclavian Arteries: Normal. Vertebral Arteries: Normal. Similar size. MR/MR angio neck w con* [id number] IMPRESSION: No significant carotid artery atherosclerosis or stenosis.
[2023-07-05] MEDS: gadobenate dimeglumine 20 mL vial IV (15:53)
--- NOTE | 2023-07-05 16:00 | MR_ITS ---
WS: [id number] MRA ANGIOGRAPHY [place] OF [place] HISTORY: R51.9 - Headache, unspecified COMPARISON: 05/23/2023, 10/12/2016 TECHNIQUE: 3-D MR angiography is performed of the [place]. All images are reviewed including source images. Slightly dominant distal RIGHT vertebral artery. LEFT vertebral artery is small caliber but patent. N ormal basilar artery. Posterior cerebral arteries are both identified and patent. No aneurysms. Hypop lastic LEFT posterior communicating artery. Dominant RIGHT posterior communicating artery. Intracranial portion of the internal carotid arteries are normal course and caliber. No significant a therosclerosis, stenosis or aneurysm identified. Middle and anterior cerebral arteries are both paten t with no significant disease. Anterior communicating artery is also normal. MR/MR angio head wo con [id number] IMPRESSION: 1. No cerebral artery aneurysm. 2. No significant occlusions or stenosis. 3. 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 4. Stable MR angiogram carotid arteries since 10/12/2016.
== END 2023-07-05 14:59 | disposition home or self-care (01) ==
LOC: RAD 14:59
PROVIDERS: PCP Family Medicine; Visit Provider Specialist
DX: I63.511 Cerebral infarction due to unspecified occlusion or stenosis of right middle cerebral artery (principal); R51.9 Headache, unspecified; Q27.8 Other specified congenital malformations of peripheral vascular system
CPT/HCPCS: 70544; 70548; A9577

== ENCOUNTER 2023-08-09 14:01 | Outpatient (CLI) | payer MEDICARE, OTHER, SELFPAY ==
--- NOTE | 2023-08-09 14:15 | USCV_ITS ---
Jayne Pepper Age: 83 Gender: F : 1940 Exam Date: 08/09/2023 14:15 Ordering Phys: Luli Bosch MD Technologist: MARIE Exam Location: [facility] [place] Indication: cva BP: 143 / 84 HR: Rhythm: Sinus Technical Quality: Adequate MEASUREMENTS (Male / Female) Normal Values 2D ECHO LV Diastolic Diameter PLAX 4.3 cm 4.2 - 5.9 / 3.9 - 5.3 cm IVS Diastolic Thickness 0.8 cm 0.6 - 1.0 / 0.6 - 0.9 cm IVS Systolic Thickness 1.0 cm LVPW Diastolic Thickness 1.3 cm 0.6 - 1.0 / 0.6 - 0.9 cm LVPW Systolic Thickness 1.6 cm LVOT Diameter 2.0 cm LV Ejection Fraction 2D Teich 58.7 % LV Ejection Fraction MOD 2C 58.8 % LV Ejection Fraction 2C AL 57.8 % LA Diameter 2.5 cm RA Systolic Volume 4C AL 27.4 ml RA Systolic Volume 4C MOD 25.1 ml LA Sys Volume AL 15.4 cm cubed LA Sys Volume Index AL 9.3 cm cubed/m squared Aorta at Sinotubular Diameter 2.6 cm IVC Diameter 0.9 cm M-MODE LA Ao Ratio MM 0.8 AV Cusp Separation MM 1.3 cm FINDINGS Left Ventricle Study is limited to two-dimensional and M-mode examination. No Doppler examination performed. Normal left ventricular size, systolic function and wall thickness, with no regional wall motion abnormalities. Left ventricular ejection fraction is estimated at 55 %. Right Ventricle Normal right ventricular size and systolic function. Right Atrium The right atrium is normal in size. Left Atrium The left atrium is normal in size. Mitral Valve Structurally normal mitral valve. Aortic Valve Structurally normal trileaflet aortic valve. Tricuspid Valve Structurally normal tricuspid valve. Pulmonic Valve Pulmonic valve not well visualized. Pericardium Normal pericardium without effusion. Aorta Normal ascending aorta dimension. IVC The inferior vena cava appears normal. CONCLUSIONS Study is limited to two-dimensional and M-mode examination. No Doppler examination performed. Normal left ventricular size, systolic function and wall thickness, with no regional wall motion abnormalities. Left ventricular ejection fraction is estimated at 55 %. There are no prior echocardiogram studies to compare. I was made aware 24 hours later that a bubble study was done. 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 Dr. Cole Diaz MD (Electronically Signed) Final Date: 09 August 2023 16:30 Amended: 10 August 2023 08:53 C
[2023-08-10 06:23] LABS: Glucose Point of Care 93 mg/dL (70-110)
== END 2023-08-09 14:02 | disposition home or self-care (01) ==
LOC: RAD 14:02
PROVIDERS: PCP Family Medicine; Visit Provider Specialist
DX: I63.511 Cerebral infarction due to unspecified occlusion or stenosis of right middle cerebral artery (principal); I10 Essential (primary) hypertension; I95.1 Orthostatic hypotension
CPT/HCPCS: 36416; 82962; C8924

== ENCOUNTER 2023-08-09 14:53 | Inpatient (IN) | payer MEDICARE, OTHER, SELFPAY ==
--- NOTE | 2023-08-09 14:55 | ECG_ITS ---
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 Measurements Intervals [place] Rate: 58 P: -42 TX: 182 QRS: 8 QRSD: 94 T: 56 QT: 418 QTc: 413 Interpretive Statements SINUS BRADYCARDIA Compared to ECG 08/13/2021 22:34:51 No significant changes Electronically Signed On 08-09-2023 21:57:59 CDT by Virginia Hurst M.D. [id number] f
[2023-08-09 15:03] VITALS: BP 151/89; PULSE 59; RESP 16; TEMP 36.5; O2SAT 98
--- NOTE | 2023-08-09 15:07 | ECG_ITS ---
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 Measurements Intervals [place] Rate: 58 P: -42 NE: 182 QRS: 8 QRSD: 94 T: 56 QT: 418 QTc: 413 Interpretive Statements SINUS BRADYCARDIA Compared to ECG 08/13/2021 22:34:51 No significant changes Electronically Signed On 08-09-2023 21:57:53 CDT by Virginia Hurst M.D. [id number]
--- NOTE | 2023-08-09 15:25 | CTR_ITS ---
PROCEDURE INFORMATION: Exam: CT Head Without Contrast Exam date and time: 08/09/2023 5:09 PM Age: 83 years old Clinical indication: Other: Chest pain/low BP; Patient HX: Coming from outpatients post echo- C/O dizziness, chest pain, low BP, per tech first take after symptom complaint 81/60, 60/44. PT states that her pain was substernal and is gone now. feels kind of empty, not spinning. Like when she had a stroke. ; Additional info: Encephalopathy, altered mental status TECHNIQUE: Imaging protocol: Computed tomography of the head without contrast. Radiation optimization: All CT scans at this facility use at least one of these dose optimization techniques: automated exposure control; mA and/or kV adjustment per patient size (includes targeted exams where dose is matched to clinical indication); or iterative reconstruction. COMPARISON: MR angio head wo con [id number] 07/05/2023 3:15 PM RADIATION DOSE METRICS: Total DLP (mGy-cm): 1053 FINDINGS: Brain: No hemorrhage. No edema. Encephalomalacia of the anterior right temporal lobe. Moderate diffuse cerebral atrophy. Old lacunar infarcts noted right basal ganglia and deep white matter tracts right frontal lobe. No mass effect. Cerebral ventricles: No ventriculomegaly. Paranasal sinuses: Visualized sinuses are unremarkable. No fluid levels. Mastoid air cells: Visualized mastoid air cells are well aerated. Bones: Unremarkable. No acute fracture. Soft tissues: Unremarkable. CT/CT head wo con* [id number] IMPRESSION: No acute intracranial abnormality.
--- NOTE | 2023-08-09 15:25 | XRR_ITS ---
PROCEDURE INFORMATION: Exam: XR Chest Exam date and time: 08/09/2023 3:33 PM Age: 83 years old Clinical indication: Pain; Angina pectoris; Additional info: Chest pain TECHNIQUE: Imaging protocol: Radiologic exam of the chest. Views: 1 view. COMPARISON: CT chest [facility] [id number] 10/22/2021 4:43 PM FINDINGS: Lungs: Unremarkable. No consolidation. Pleural spaces: Unremarkable. No pleural effusion. No pneumothorax. Heart/Mediastinum: Unremarkable. No cardiomegaly. Bones/joints: Unremarkable. XR/XR chest 1V portable [id number] IMPRESSION: No acute findings.
[2023-08-09 15:42] VITALS: BP 147/87; PULSE 60; RESP 15; O2SAT 97
[2023-08-09 15:56] LABS: Basophils # 0.1 10^3/uL (0.0-0.1); Basophils % 0.6 %; Eosinophils # 0.1 10^3/uL (0.0-0.8); Eosinophils % 1.1 %; Hematocrit 47.8 % (36-47); Lymphocytes # 1.8 10^3/uL (0.8-4.8); Lymphocytes % 21.5 %; Mean Corpuscular HGB Conc 33.1 g/dL (30-55); Mean Corpuscular Hemoglobin 31.9 pg (27-33); Mean Corpuscular Volume 96.4 fl (85-98); Mean Platelet Volume 11.3 fL (7.4-10.4); Monocytes # 0.6 10^3/uL (0.2-0.9); Monocytes % 7.5 %; Neutrophils % 69.2 %; Nucleated Red Blood Cells % 0 %; Platelet Count 241 10^3/cmm (157-399); Red Blood Count 4.96 10^6/uL (3.85-5.65); Red Cell Distribution Width 11.9 % (12.1-15.1); White Blood Count 8.38 10^3/uL (3.29-11.43)
[2023-08-09 16:19] LABS: Lactic Sepsis W/Reflex 1.2 mmol/L (0.5-2.2)
[2023-08-09 16:20] LABS: Troponin(5th) Baseline 10 ng/L (0-10)
--- NOTE | 2023-08-09 16:29 | W.ED.CHESTPA ---
HPI - Chest Pain General: Chief Complaint: Chest Pain Stated Complaint: outpatient echo sent over,bp low chest pain, dizzy Time Seen by Provider: 08/09/23 15:24 History of Present Illness: 83-year-old female with history of a recent stroke with some memory and gait deficits that have greatly improved who presents to the emergency room from cardiac where she was getting an echocardiogram with a bubble study done with chest pain and weakness. Apparently her blood pressure dropped down into the 60s or 70s systolic. She said she had some chest discomfort and could not stand up because she was so lightheaded. She had improved some but they suggested she come to the emergency room for evaluation prior to going home. She says she still feels a little bit weak now but is not having any chest pain. No altered mental status. No new focal motor deficits. She has had no fevers. No more chest pain. No fevers. No nausea or vomiting. No abdominal pain. Review of Systems Narrative: Constitutional symptoms: Negative except as documented in HPI. Skin symptoms: Negative except as documented in HPI. Eye symptoms: Negative except as documented in HPI. ENMT symptoms: Negative except as documented in HPI. Respiratory symptoms: Negative except as documented in HPI. Cardiovascular symptoms: Negative except as documented in HPI. Gastrointestinal symptoms: Negative except as documented in HPI. Genitourinary symptoms: Negative except as documented in HPI. Musculoskeletal symptoms: Negative except as documented in HPI. Neurologic symptoms: Negative except as documented in HPI. Psychiatric symptoms: Negative except as documented in HPI. Endocrine symptoms: Negative except as documented in HPI. PFS ED PFSH: Medical History Chorea Encounter for screening mammogram for breast cancer HTN (hypertension), benign Orthostatic hypotension Skin rash Positive UDAY (antinuclear antibody) Benign positional vertigo Recurrent occipital headache Hypothalamic hypothyroidism Surgical History History of foot surgery History of appendectomy History of tubal ligation Social History Smoking and tobacco/nicotine status: never used tobacco/nicotine Alcohol intake: current Alcohol intake frequency: holidays/special occasions only Substance/Drug Use: never Physical Exam Narrative: EXAM NARRATIVE: General: Alert, no acute distress. Skin: Warm, dry. Head: Normocephalic, atraumatic. Neck: Supple, trachea midline. Eye: Extraocular movements are intact. Ears, nose, mouth and throat: mucosa moist. Cardiovascular: Regular, Normal peripheral perfusion. Respiratory: Lungs are clear to auscultation, respirations are non-labored, breath sounds are equal, Symmetrical chest wall expansion. Gastrointestinal: Soft, Nontender, Non distended Musculoskeletal: Normal ROM, no deformity. Neurological: Alert and oriented, No focal neurological deficit observed. Psychiatric: Cooperative, appropriate mood & affect. Course Vital Signs: Vital signs: Vital Signs Temperature 97.7 F 08/09/23 15:03 Pulse Rate 56 L 08/09/23 18:52 Respiratory Rate 25 H 08/09/23 18:52 Blood Pressure 147/87 08/09/23 15:42 Pulse Oximetry 95 08/09/23 18:52 Oxygen Delivery Me thod Room Air 08/09/23 15:42 MDM - Chest Pain Medical Decision Making Medical decision making: Differential diagnosis for patient presenting with generalized weakness including but not limited to and based on the above HPI, review of systems and physical exam: Sepsis. Dehydration. Renal failure. Electrolyte abnormalities. Anemia. Congestive heart failure. Hypotension. Coronary syndrome. Hepatitis. Cirrhosis. Infections such as pneumonia, urinary tract infection, Tick bourne illness, Cellulitis, Viral infections including influenza and Covid-19. Workup: labwork and lab/exam driven imaging ordered to evaluate, rule in and rule out above pathologies. EKG: Time 1728. Rate 54. Sinus bradycardia. No ST-T changes, no ectopy, normal [place] & QRS intervals, This was reviewed and interpreted by myself the ER physician at 1732. Chest x-ray: No acute process. No infiltrate. No pneumothorax. This was reviewed and interpreted by myself the ER physician. CT head: Encephalomalacia of the anterior right temporal lobe. Moderate diffuse cerebral atrophy. Old lacunar infarcts noted right basal ganglia and deep white matter tracts right frontal lobNo acute intracranial process. no intracranial hemorrhage, no evidence of infarct. no evidence of acute fracture. This was reviewed and interpreted by myself the emergency room physician. I also reviewed the radiology report. Lab Review: Laboratory results were reviewed and interpreted by myself the emergency room physician. No leukocytosis. No anemia. No renal failure. She does have a bit of a urinary tract infection. Patient does have a delta Trope. Her initial troponin was negative. Repeat was around 60. I reviewed the patient's medical record. Reexamination: Patient remained stable. She has had no further hypotensive episodes. No more chest pain. No altered mental status. No increased work of breathing. Assessment and plan: Non-ST elevation myocardial infarction Hypotensive event Urinary tract infection ?IV Rocephin ? Therapeutic Lovenox and 324 chewable aspirin. -I discussed the patient with the hospitalist on-call who is admitting the patient. - Discussed findings and plan with patient. Answered any questions. - All laboratory values were reviewed and interpreted personally by myself, the ER physician - All imaging was reviewed and interpreted personally by myself, the ER physician. - Evaluation and treatment of this problem were appropriate in the emergency setting Lab Data 08/09/23 15:44 08/09/23 17:49 Radiology Impressions Chest X-Ray 08/09/23 15:25 IMPRESSION: No acute findings. Head CT 08/09/23 15:25 IMPRESSION: No acute intracranial abnormality. Laboratory Results WBC 8.38 10^3/uL (3.29-11.43) 08/09/23 15:44 RBC 4.96 10^6/uL (3.85-5.65) 08/09/23 15:44 Hgb 15.80 g/dL (11.27-16.99) 08/09/23 15:44 Hct 47.8 % (36-47) H 08/09/23 15:44 MCV 96.4 fl (85-98) 08/09/23 15:44 MCH 31.9 pg (27-33) 08/09/23 15:44 MCHC 33.1 g/dL (30-55) 08/09/23 15:44 RDW 11.9 % (12.1-15.1) L 08/09/23 15:44 Plt Count 241 10^3/cmm (157-399) 08/09/23 15:44 MPV 11.3 fL (7.4-10.4) H 08/09/23 15:44 Neut % (Auto) 69.2 % 08/09/23 15:44 Lymph % (Auto) 21.5 % 08/09/23 15:44 Villalba % (Auto) 7.5 % 08/09/23 15:44 Eos % (Auto) 1.1 % 08/09/23 15:44 Baso % (Auto) 0.6 % 08/09/23 15:44 Neut # (Auto) 5.80 10^3/uL (1.8-7.7) 08/09/23 15:44 Lymph # (Auto) 1.8 10^3/uL (0.8-4.8) 08/09/23 15:44 Villalba # (Auto) 0.6 10^3/uL (0.2-0.9) 08/09/23 15:44 Eos # (Auto) 0.1 10^3/uL (0.0-0.8) 08/09/23 15:44 Baso # (Auto) 0.1 10^3/uL (0.0-0.1) 08/09/23 15:44 Nucleated RBC % (auto) 0 % 08/09/23 15:44 Nucleated RBCs # 0.0 /100WBC 08/09/23 15:44 Sodium 144 mmol/L (136-145) 08/09/23 17:49 Potassium 3.9 mmol/L (3.5-5.1) 08/09/23 17:49 Chloride 104 mmol/L (98-107) 08/09/23 17:49 Carbon Dioxide 28 mmol/L (22-29) 08/09/23 17:49 Anion Gap 15.9 (5-19) 08/09/23 17:49 BUN 11 mg/dL (8-23) 08/09/23 17:49 Creatinine 0.8 mg/dL (0.5-0.9) 08/09/23 17:49 GFR Calculation Not Reportable 08/09/23 17:49 Glucose 93 mg/dL (65-115) 08/09/23 17:49 Calculated Osmolality 297 mOsm/kg (285-295) H 08/09/23 17:49 Lactic Acid 1.2 mmol/L (0.5-2.2) 08/09/23 15:44 Calcium 9.5 mg/dL (8.5-10.5) 08/09/23 17:49 Total Bilirubin 0.6 mg/dL (0.15-1.2) 08/09/23 17:49 AST 16 U/L (0-32) 08/09/23 17:49 ALT 12 U/L (0-33) 08/09/23 17:49 Alkaline Phosphatase 58 U/L (35-105) 08/09/23 17:49 Troponin T Baseline 10 ng/L (0-10) 08/09/23 15:44 Troponin T 120 Minute 50.46 ng/L (0-10) H 08/09/23 17:49 Delta Troponin T 40.46 ABS# (0-10) H* 08/09/23 17:49 C-Reactive Protein 3.0 mg/L (0.0-4.9) 08/09/23 15:44 Total Protein 6.8 g/dL (6.6-8.7) 08/09/23 17:49 Albumin 4.3 g/dL (3.5-5.2) 08/09/23 17:49 Globulin 2.5 g/dL (1.3-4.6) 08/09/23 17:49 Urine Color Yellow (Yellow) 08/09/23 17:05 Urine Appearance Slightly cloudy (CLEAR) 08/09/23 17:05 Urine pH 5 (5-7) 08/09/23 17:05 Ur Specific [place] 1.020 (1.005-1.030) 08/09/23 17:05 Urine Protein Neg (Negative) 08/09/23 17:05 Urine Glucose (UA) Norm (Normal) 08/09/23 17:05 Urine Ketones 1+ (Negative) H 08/09/23 17:05 Urine Blood Neg (Negative) 08/09/23 17:05 Urine Nitrate Negative (Negative) 08/09/23 17:05 Urine Bilirubin Neg (Negative) 08/09/23 17:05 Urine Urobilinogen Norm mg/dL (Negative) 08/09/23 17:05 Ur Leukocyte Esterase 1+ (Negative) H 08/09/23 17:05 Urine RBC 0-4 /hpf (0-2) H 08/09/23 17:05 Urine WBC 10-15 /hpf (0-5) H 08/09/23 17:05 Ur Squamous Epith Cells 0-4 /hpf (0-5) H 08/09/23 17:05 Amorphous Sediment Not Reportable 08/09/23 17:05 Urine Bacteria Trace /hpf (NONE) 08/09/23 17:05 Urine Mucus Trace /hpf 08/09/23 17:05 All radiology interpretation(s) finalized by discharge Discharge Plan Discharge Patient Disposition: Admitted As Inpatient Clinical Impression: Non-ST elevation (NSTEMI) myocardial infarction, Hypotensive episode, UTI (urinary tract infection) Condition: Stable Coding Level of Care Code ED Rectification Printer for Ignacio Roberson
--- NOTE | 2023-08-09 17:33 | ECG_ITS ---
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 Measurements Intervals [place] Rate: 54 P: -46 MA: 184 QRS: -3 QRSD: 86 T: 49 QT: 420 QTc: 401 Interpretive Statements SINUS BRADYCARDIA LOW QRS VOLTAGE IN PRECORDIAL LEADS [QRS DEFLECTION < 1.0 mV IN CHEST LEADS] ANTEROSEPTAL MYOCARDIAL INFARCTION , PROBABLY OLD [40+ ms Q WAVE IN V1-V4] Diffuse nonspecific ST-T Compared to ECG 08/09/2023 14:55:57 Low QRS voltage now present Myocardial infarct finding now present Electronically Signed On 08-09-2023 22:16:13 CDT by Virginia Hurst M.D. [email or web address].[facility].[employer]/store/OM/[id number]
[2023-08-09 17:50] LABS: Bacteria Urine TRACE /hpf; Bilirubin Urine Neg (Negative); Blood Urine Neg (Negative); Glucose Urine UA Norm (Normal); Ketones Urine 1+ (Negative); Leukocyte Esterase Urine 1+ (Negative); Mucus Urine TRACE /hpf; Nitrate Urine Negative (Negative); Protein Urine Neg (Negative); RBC Urine 0-4 /hpf (0-2); Squamous Epithelial Cell Urine 0-4 /hpf (0-5); Urine Appearance Slightly Cloudy (CLEAR); Urine Color Yellow (Yellow); Urobilinogen Urine Norm (Negative); pH Urine 5 (5-7)
[2023-08-09 17:51] LABS: Add Urine Culture? No
--- NOTE | 2023-08-09 17:57 | PC.NURSE ---
PER DR. FULLER VERBAL ORDER, ROCEPHIN ORDER CHANGED TO IM SHOT.
[2023-08-09 18:17] LABS: Alanine Aminotransferase 12 U/L (0-33); Albumin Level 4.3 g/dL (3.5-5.2); Alkaline Phosphatase 58 U/L (35-105); Anion Gap 15.9 (5-19); Aspartate Amino Transferase 16 U/L (0-32); Blood Urea Nitrogen 11 mg/dL (8-23); Calcium 9.5 mg/dL (8.5-10.5); Carbon Dioxide 28 mmol/L (22-29); Chloride 104 mmol/L (98-107); Creatinine Clr Calc Pharmacy 50.4708; Globulin 2.5 g/dL (1.3-4.6); Glucose 93 mg/dL (65-115); Osmolality Calculated 297 mOsm/kg (285-295); Potassium 3.9 mmol/L (3.5-5.1); Sodium 144 mmol/L (136-145); Total Bilirubin 0.6 mg/dL (0.15-1.2); Total Protein 6.8 g/dL (6.6-8.7)
[2023-08-09 18:20] LABS: Troponin 5 2HR 50.46 ng/L (0-10)
[2023-08-09 18:25] LABS: Troponin 5 2HR Delta 40.46 ABS# (0-10)
[2023-08-09] MEDS: cefTRIAXone 1,000 MG in water for injection-sterile 2.1 ML 1 MG IM (18:43)
--- NOTE | 2023-08-09 18:44 | PC.NURSE ---
PATIENT WAS UNABLE TO TOLERATE FULL DOSE OF ROCEPHIN IM. PATIENT RECEIVED [address] FULLER VERBAL ORDER, PATIENT TO RECEIVE 500MG IV.
[2023-08-09 18:52] VITALS: PULSE 56; RESP 25; O2SAT 95
[2023-08-09] MEDS: cefTRIAXone 1,000 mg SDV 500 MG IVP (19:04)
[2023-08-09] MEDS: aspirin 81 mg Chew Tablet 324 MG PO (19:13)
[2023-08-09] MEDS: enoxaparin 60 mg/0.6 mL Syringe SUBCUT (19:13)
--- NOTE | 2023-08-09 19:30 | PC.NURSE ---
20g IV placed in patient's left AC by Galilea MOREJON.
[2023-08-09 19:36] VITALS: BP 176/79; PULSE 58; RESP 20; O2SAT 99
--- NOTE | 2023-08-09 19:44 | P.HP_ITS ---
Providers/Chief Complaint 2 Primary Care Provider: Saray Breen MD Chief Complaint: outpatient echo sent over,bp low chest pain, dizzy History of Present Illness Jayne Pepper is a 83 year old female with past medical history of hypothyroidism, occipital headache, orthostatic hypotension, hypertension, hypothalamic hypothyroidism who who 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 She suddenly developed chest pain and weakness and at that time her blood pressure dropped to 60s or 70s systolic. She became acutely lightheaded and could not stand up. She was sent to emergency room for evaluation prior to going home. In the ER patient did complain of weakness but chest pain had resolved. She was not altered and alert oriented x 3. No focal neurological deficits. Denied any chest pain, shortness of breath nausea vomiting abdominal pain fever. Patient has no known history of heart disease. ER course on arrival blood pressure 147/87, pulse 56, saturating 95% on room air. Initial EKG showed rate [address] changes. Chest x-ray showed no acute process. CT head showed no acute hemorrhage or infarct. UA abnormal. Patient was given a dose of Rocephin. Delta troponin at 2 hours was 40+. 6-hour troponin is pending at this time. Patient remained stable and has not had any further hypotensive episodes. She was also given a dose of Lovenox. Medications/Allergies Home Medications Medication Instructions Recorded Confirmed Last Taken Type vitamins A,C,D-yvgn-lihnws 4,296 1 cap PO BID 08/19/21 08/09/23 08/09/23 History mcg-226 mg-90 mg capsule (ICaps AREDS) multivitamin with minerals-folic 1 tab PO DAILY 10/25/22 08/09/23 08/09/23 History acid 120 mcg chewable tablet (Adult Multivitamin Gummies) latanoprost 0.005 % eye drops 1 drp ophthalmic (eye) QPM 04/27/23 08/09/23 08/08/23 History levothyroxine 125 mcg capsule 125 mcg PO DAILY #90 caps 05/02/23 08/09/23 08/09/23 Rx oxycodone-acetaminophen 5 mg-325 1 tab PO Q6H PRN pain 1 month #60 05/05/23 08/09/23 Unknown Rx mg tablet tabs aspirin 81 mg tablet 81 mg PO DAILY 08/09/23 08/09/23 08/09/23 History Allergies Allergy/AdvReac Type Severity Reaction Status Date / Time topiramate [From Topamax] Allergy nausea Verified 08/09/23 15:09 PFSH Acute 2 PFSH: Medical History Chorea Encounter for screening mammogram for breast cancer HTN (hypertension), benign Orthostatic hypotension Skin rash Positive UDAY (antinuclear antibody) Benign positional vertigo Recurrent occipital headache Hypothalamic hypothyroidism Surgical History History of foot surgery History of appendectomy History of tubal ligation Social History Smoking and tobacco/nicotine status: never used tobacco/nicotine Alcohol intake: current Alcohol intake frequency: holidays/special occasions only Substance/Drug Use: never Vitals/I&O/Wt Last Vital Signs Temp 97.7 F 08/09/23 15:03 Pulse 58 L 08/09/23 19:36 Resp 20 H 08/09/23 19:36 BP 176/79 08/09/23 19:36 Pulse Ox 99 08/09/23 19:36 O2 Del Method Room Air 08/09/23 15:42 Weight last 48 hrs Weight 57.606 kg Physical Exam 2 Narrative: General: Alert oriented x3, patient seen laying in bed appearing comfortable, no acute distress, denies chest pain at this time. HEENT: Normocephalic, atraumatic, EOMI, breathing room air. Cardio: Sinus bradycardia, normal S1-S2 Respiratory: Clear to auscultation bilaterally no wheezes no rhonchi GI: Abdomen soft, nontender, nondistended, bowel sounds + Extremities: No edema Data 08/09/23 15:44 08/09/23 17:49 Micro: Microbiology 08/09/23 15:50 Blood Culture - Preliminary Blood SPECIMEN COLLECTED 08/09/23 15:44 Blood Culture - Preliminary Blood SPECIMEN COLLECTED A&P Assessment and plan (1) HTN (hypertension), benign: (2) Orthostatic hypotension: (3) Hypotensive episode: (4) Non-ST elevation (NSTEMI) myocardial infarction: (5) Hypothalamic hypothyroidism: (6) Benign positional vertigo: Qualifiers: Laterality: unspecified laterality Qualified Code(s): H81.10 - Benign paroxysmal vertigo, unspecified ear (7) UTI (urinary tract infection): Plan #Chest pain, NSTEMI, Type 1 VS Type 2 #History of be BPV #History of hypothyroidism #History of seizures, recent stroke #History of orthostatic hypotension #Hypertension ? 2-hour troponin delta +40. 6-hour troponin pending. Initial EKG negative for any acute ischemic changes. Troponin leak may be secondary to acute hypotension however ACS cannot be ruled out. She has normal history of orthostatic hypotension. 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 Very active. Walks half a mile to a mile daily and plays golf daily. Never gets short of breath and never has chest pain. No history of heart disease MIs in the family. She states she developed chest pain and extreme lightheadedness when she stood up after her echo was completed. Chest pain started to resolve on its own in the next few minutes while she walked over to the ER. Denies any nausea or diaphoresis along with that episode. ? No neurological focal deficits at this time ? Blood pressure has been stable since she got to the ER. ? Check TSH, lipid profile, hemoglobin A1C ? Check orthostatic vitals ? Check serial EKGs ? Continue therapeutic Lovenox ? Start aspirin, will load with Plavix 300, thereafter Plavix 75 daily. May de- escalate if stress test normal. ? Placed on atorvastatin 80 -I would cover with therapeutic Lovenox. ? Hold off on beta-prabhjot since patient is slightly bradycardic. 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 ? Check echo to rule out wall motion abnormalities ?First 2 troponins have resulted with 6-hour troponin is pending. It was canceled for an unknown reason. I have reordered that at this time. - Verify home meds -Check stress test in AM. Full Code DVT PPX: THerapeutic lovenox Attestations 2 Medical Necessity Statement*: > 2 midnight stay for management of NSTEMI Diagnoses HTN (hypertension), benign I10 Orthostatic hypotension I95.1 Hypotensive episode I95.9 Non-ST elevation (NSTEMI) myocardial infarction I21.4 Hypothalamic hypothyroidism E03.8 Benign paroxysmal positional vertigo, unspecified laterality H81.10 Laterality: unspecified laterality UTI (urinary tract infection) N39.0
--- NOTE | 2023-08-09 20:10 | USCV_ITS ---
Jayne Pepper Age: 83 Gender: F : 1940 Exam Date: 08/09/2023 22:12 Ordering Phys: Mi Damon MD Technologist: MYRIAM Exam Location: [facility] Indication: CP, weakness, elevated troponin BP: 176 / 79 HR: 52 Rhythm: Sinus bradycardia Technical Quality: Good MEASUREMENTS (Male / Female) Normal Values 2D ECHO LV Diastolic Diameter PLAX 4.4 cm 4.2 - 5.9 / 3.9 - 5.3 cm IVS Diastolic Thickness 1.1 cm 0.6 - 1.0 / 0.6 - 0.9 cm IVS Systolic Thickness 1.5 cm LVPW Diastolic Thickness 1.1 cm 0.6 - 1.0 / 0.6 - 0.9 cm LVPW Systolic Thickness 0.7 cm LVOT Diameter 1.8 cm LV Ejection Fraction 2D Teich 46.6 % LV Ejection Fraction MOD 2C 40.0 % LV Ejection Fraction 2C AL 38.6 % LA Diameter 3.1 cm Aorta at Sinotubular Diameter 3.0 cm IVC Diameter 1.4 cm M-MODE LA Ao Ratio MM 0.9 AV Cusp Separation MM 2.0 cm DOPPLER AV Peak Velocity 63.0 cm/s LVOT Peak Velocity 62.0 cm/s AV Area Cont Eq vti 2.5 cm squared AV Area Cont Eq pk 2.5 cm squared MV Peak Velocity 96.0 cm/s MV Area PHT 3.4 cm squared Mitral E to A Ratio 0.4 TV Peak Velocity 253.3 cm/s TR Peak Velocity 256.0 cm/s TR Peak Gradient 26.2 mmHg TV Peak E Velocity 50.0 cm/s Right Atrial Pressure 3.0 mmHg Pulmonary Artery Systolic Pressu 29.2 mmHg PV Peak Velocity 65.0 cm/s FINDINGS Left Ventricle The ventricle is normal in size. There is severe hypokinesis to akinesis of the apex. The anterior base and mid anterior wall contract normally. The inferior and posterior rascon contract normally. There is mild hypokinesis of the apical lateral wall. The overall ejection fraction is about 40%. Grade 1 diastolic dysfunction. Right Ventricle Normal right ventricular size and systolic function. Normal right ventricular systolic pressure. Right Atrium The right atrium is normal in size. Left Atrium The left atrium is normal in size. Mitral Valve Structurally normal mitral valve without significant stenosis or prolapse. There is no mitral regurgitation. Aortic Valve Structurally normal aortic valve without significant sclerosis or stenosis. There is no aortic regurgitation. Tricuspid Valve Structurally normal tricuspid valve. Xpfbfmiw-mt-ipeehh tricuspid valve regurgitation. Pulmonic Valve Pulmonic valve not well visualized. Pericardium Normal pericardium without effusion. Aorta Normal ascending aorta dimension. IVC The inferior vena cava appears normal. CONCLUSIONS The ventricle is normal in size. There is severe hypokinesis to akinesis of the apex. The anterior base and mid anterior wall contract normally. The inferior and posterior rascon contract normally. There is mild hypokinesis of the apical lateral wall. The overall ejection fraction is about 40%. Grade 1 diastolic dysfunction. The previous echo was several hours prior to this 1. The wall motion disturbance is new. Dr. Cole Diaz MD (Electronically Signed) Final Date: 10 August 2023 08:49 S
[2023-08-09 20:11] VITALS: BP 119/73; BP 119/78; BP 123/79; PULSE 57; PULSE 61
--- NOTE | 2023-08-09 20:35 | PC.NURSE ---
Report called to Casi MOREJON on MS. All questions and concerns addressed at time of report.
[2023-08-09] MEDS: atorvastatin 40 mg Tablet 80 MG PO (20:44)
[2023-08-09] MEDS: clopidogrel 300 mg Tablet PO (20:44)
[2023-08-09 20:59] VITALS: BMI 20.7
--- NOTE | 2023-08-09 21:33 | ECG_ITS ---
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 Measurements Intervals [place] Rate: 58 P: -42 DE: 188 QRS: -12 QRSD: 102 T: 239 QT: 461 QTc: 453 Interpretive Statements SINUS BRADYCARDIA ST DEVIATION AND MARKED T-WAVE ABNORMALITY, CONSIDER LATERAL ISCHEMIA [-0.5+ mV T-WAVE IN I/aVL/V5/V6] ST DEVIATION AND MODERATE T-WAVE ABNORMALITY, CONSIDER INFERIOR ISCHEMIA [-0.1+ mV T-WAVE IN II/aVF] Compared to ECG 08/09/2023 17:28:43 T-wave abnormality now present Possible ischemia now present Myocardial infarct finding no longer present Electronically Signed On 08-10-2023 19:41:20 CDT by Cole Diaz M.D. [id number]
[2023-08-09 21:54] LABS: Procalcitonin 0.02 ng/mL (0-0.5)
[2023-08-09 22:05] LABS: Chol HDL Ratio 2.35 mg/dL (0.0-4.40); Cholesterol 209 mg/dL (0-200); HDL Cholesterol 89 mg/dL (60-100); LDL Cholesterol Calculated 105 mg/dL (50-129); Triglycerides 77 mg/dL (0-150); VLDL Cholestrol Calculation 15 mg/dL (0-30)
[2023-08-09 22:40] LABS: Troponin T (5th) Once 107 ng/L (0-10)
--- NOTE | 2023-08-09 23:15 | ECG_ITS ---
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 Measurements Intervals [place] Rate: 53 P: -34 AL: 185 QRS: 9 QRSD: 109 T: 204 QT: 509 QTc: 482 Interpretive Statements SINUS BRADYCARDIA ST DEVIATION AND MARKED T-WAVE ABNORMALITY, CONSIDER LATERAL ISCHEMIA [-0.5+ mV T-WAVE IN I/aVL/V5/V6] ST DEVIATION AND MODERATE T-WAVE ABNORMALITY, CONSIDER INFERIOR ISCHEMIA [-0.1+ mV T-WAVE IN II/aVF] Compared to ECG 08/09/2023 22:53:24 No significant changes Electronically Signed On 08-10-2023 19:41:43 CDT by Cole Diaz M.D. [email or web address].[employer]/store/[id number]
[2023-08-09 23:38] LABS: Estmated Average Glucose 105; Hemoglobin A1C 5.3 % (4.0-6.0)
[2023-08-09 23:42] LABS: Free T4 Free Thyroxine 1.84 ng/dL (0.82-1.77)
[2023-08-10] VITALS (14 sets, daily range): BP systolic 90–126; BP diastolic 52–74; PULSE 48–65; RESP 13–20; TEMP 36.3–36.6; O2SAT 93–97
--- NOTE | 2023-08-10 00:11 | PC.NURSE ---
Manufacturing Project Manager notified of pt EKG changes and increased trop level. Pt c/o no chest pain at this time. VSS. No new orders at this time. Cards to see pt in AM.
[2023-08-10] MEDS: enoxaparin 100 mg/mL Syringe 60 MG SUBCUT ×2 (06:23→18:31)
[2023-08-10] MEDS: sodium chloride 0.9% 1,000 ML 125 ML IV (06:24)
[2023-08-10 07:10] LABS: Basophils # 0.1 10^3/uL (0.0-0.1); Basophils % 0.8 %; Eosinophils # 0.2 10^3/uL (0.0-0.8); Eosinophils % 2.6 %; Lymphocytes % 32.7 %; Mean Corpuscular HGB Conc 33.8 g/dL (30-55); Mean Corpuscular Hemoglobin 32.2 pg (27-33); Mean Corpuscular Volume 95.2 fl (85-98); Mean Platelet Volume 11.8 fL (7.4-10.4); Monocytes # 0.6 10^3/uL (0.2-0.9); Monocytes % 9.8 %; Neutrophils # 3.29 10^3/uL (1.8-7.7); Neutrophils % 53.9 %; Nucleated Red Blood Cells % 0 %; Platelet Count 209 10^3/cmm (157-399); Red Blood Count 4.41 10^6/uL (3.85-5.65); White Blood Count 6.11 10^3/uL (3.29-11.43)
[2023-08-10 07:34] LABS: Anion Gap 13.8 (5-19); Blood Urea Nitrogen 12 mg/dL (8-23); Carbon Dioxide 26 mmol/L (22-29); Chloride 105 mmol/L (98-107); Creatinine Clr Calc Pharmacy 51.2339; Glucose 89 mg/dL (65-115); Osmolality Calculated 291 mOsm/kg (285-295); Potassium 3.8 mmol/L (3.5-5.1); Sodium 141 mmol/L (136-145)
[2023-08-10 09:09] LABS: Troponin T (5th) Once 73 ng/L (0-10)
[2023-08-10] MEDS: clopidogrel 75 mg Tablet PO (09:14)
[2023-08-10] MEDS: aspirin 81 mg EC Tablet PO (09:14)
--- NOTE | 2023-08-10 10:08 | P.CONIM_ITS ---
Providers/Reason For Consult 2 Consulting Physician/Specialty*: Cardiovascular medicine Reason for Consult*: Elevated troponin Requesting Physician: Hospitalist Attending Physician: Phuc Lobo MD Primary Care Provider: Saray Breen MD History of Present Illness History of Present Illness Jayne Pepper is a 83 year old female who was admitted to the hospital yesterday. The history of this illness goes back to April when she fell and hit her head on April 26. At that time the CT scan of her head was negative. She was evaluated by Dr. Bosch at that time. The CT scan did not show any evidence of a stroke. In taking the history this lady has had unusual spells of dizziness and unsteadiness of gait and lightheadedness over the last several months. Dr. Bosch ordered an MRI of her head which was done on May 22. 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 She then saw Dr. Bosch in follow-up on June 23 where the opinion was she clearly had had a stroke in the past and probably had 1 on the day in April when she fell and hit her head. She had a postconcussive syndrome which included some unusual activities, visual disturbances among other things. Yesterday she came to the ultrasound lab to have an echocardiogram with what I learned later was a bubble study. I read the echo yesterday but was not aware that a bubble study had been included. The echo itself was a 2D study with M- mode and was normal. Patient had an unusual set of symptoms with dizziness, lightheadedness and a flushing sensation down her chest with some chest pain. She told the radiology ct technologist that she did not feel well and so she was taken over to the emergency room. Initial EKG at 1455 hrs. was normal. The second was at 1507 hrs. and was normal. The third was 1728 hrs. and there was subtle mild ST segment depression in the lateral leads. The next 2 EKGs at 2133 hrs. and 0025 hrs. this morning showed rather profound T wave inversion in the lateral leads with mild ST segment depression. The initial troponin was 10, the second was 50 and the third was 73. I was called around 11:00 last evening and initially was informed that another echo had been done but the information given to me at the time suggested that the first echo was abnormal and a second echo done a few hours later was abnormal. I subsequently learned that this was not the case and that the first echo was normal and the second had a wall motion disturbance. By that time the patient was completely free of pain and hemodynamically stable. Subsequently, when looking at the second echo, I went back to compare to the first echo which had been done several hours earlier and only at that time was made aware that the bubble study had been done. The bubble study is positive showing an intra-atrial shunt from right to left. As I visit with the patient today she is a bit nonplussed as to what all the confusion is about. She is not having any more chest pain. The chest pain lasted for only a few minutes when she was in the ultrasound lab yesterday and resolved upon her admission to the emergency room. Review of Systems 2 Narrative: Review of systems is negative Medications/Allergies Home Medications Medication Instructions Recorded Confirmed Last Taken Type vitamins A,C,B-lilm-dxnwme 4,296 1 cap PO BID 08/19/21 08/09/23 08/09/23 History mcg-226 mg-90 mg capsule (ICaps AREDS) multivitamin with minerals-folic 1 tab PO DAILY 10/25/22 08/09/23 08/09/23 History acid 120 mcg chewable tablet (Adult Multivitamin Gummies) latanoprost 0.005 % eye drops 1 drp ophthalmic (eye) QPM 04/27/23 08/09/23 08/08/23 History levothyroxine 125 mcg capsule 125 mcg PO DAILY #90 caps 05/02/23 08/09/23 08/09/23 Rx oxycodone-acetaminophen 5 mg-325 1 tab PO Q6H PRN pain 1 month #60 05/05/23 08/09/23 Unknown Rx mg tablet tabs aspirin 81 mg tablet 81 mg PO DAILY 08/09/23 08/09/23 08/09/23 History Allergies Allergy/AdvReac Type Severity Reaction Status Date / Time topiramate [From Topamax] Allergy nausea Verified 08/09/23 15:09 Current Medications Generic Name Dose Route Start Last Admin Trade Name Freq PRN Reason Stop Dose Admin Aspirin 81 mg 08/10/23 09:00 08/10/23 09:14 Aspirin 81 Mg Ec Tablet PO 81 mg DAILY LIAN Administration Atorvastatin Calcium 80 mg 08/09/23 21:00 08/09/23 20:44 Atorvastatin 40 Mg Tablet PO 80 mg BEDTIME LIAN Administration Clopidogrel Bisulfate 75 mg 08/10/23 09:00 08/10/23 09:14 Clopidogrel 75 Mg Tablet PO 75 mg DAILY LIAN Administration Enoxaparin Sodium 60 mg 08/10/23 07:00 08/10/23 06:23 Enoxaparin 100 Mg/Ml Syringe 1 mg/kg (60 mg) 60 mg SUBCUT Administration Q12H LIAN Sodium Chloride 1,000 mls @ 75 mls/hr 08/10/23 06:15 08/10/23 09:13 Sodium Chloride 0.9% IV 75 mls/hr .[id number] LIAN Infusion PFSH Acute 2 PFSH: Medical History (Updated 08/10/23 @ 10:30 by Cole Diaz MD) Paradoxical embolism Chorea Encounter for screening mammogram for breast cancer HTN (hypertension), benign Orthostatic hypotension Skin rash Positive UDAY (antinuclear antibody) Benign positional vertigo Recurrent occipital headache Hypothalamic hypothyroidism Surgical History History of foot surgery History of appendectomy History of tubal ligation Social History Smoking and tobacco/nicotine status: never used tobacco/nicotine Alcohol intake: current Alcohol intake frequency: holidays/special occasions only Substance/Drug Use: never Vitals/I&O/Wt Last Vital Signs Temp 97.3 F L 08/10/23 08:27 Pulse 65 08/10/23 08:27 Resp 18 08/10/23 08:27 BP 114/61 08/10/23 08:27 Pulse Ox 97 08/10/23 08:27 O2 Del Method Room Air 08/10/23 08:27 08/09/23 08/10/23 08/10/23 22:59 06:59 14:59 Intake Total 242.1 / 242.1 120 / 362.1 352.083 / 352.083 Balance 242.1 / 242.1 120 / 362.1 352.083 / 352.083 Weight last 48 hrs Weight 132 lb Weight 132 lb 4 oz Weight 127 lb Physical Exam 2 Narrative: GENERAL: In general she looks and feels well today HEENT: Exam within normal limits. NECK: Supple without jugular vein distention. The carotid upstroke is normal without bruits. BACK: Exam normal. LUNGS: Clear. HEART: Regular rate and rhythm. ABDOMEN: Benign without organomegaly or tenderness. EXTREMITIES: No edema. NEUROLOGIC: Exam normal. SKIN: Unremarkable. Data 08/10/23 06:37 08/10/23 06:37 Micro: Microbiology 08/09/23 15:50 Blood Culture - Preliminary Blood SPECIMEN COLLECTED 08/09/23 15:44 Blood Culture - Preliminary Blood SPECIMEN COLLECTED A&P Assessment and plan (1) HTN (hypertension), benign: (2) Non-ST elevation (NSTEMI) myocardial infarction: (3) Acute right arterial ischemic stroke, middle cerebral artery (MCA): (4) Concussion: Qualifiers: Encounter type: subsequent encounter Loss of consciousness presence/duration: with LOC of 30 min or less Qualified Code(s): S06.0X1D - Concussion with loss of consciousness of 30 minutes or less, subsequent encounter (5) Paradoxical embolism: Plan This patient is having paradoxical emboli that explains her previous strokes. I am sure the stroke was responsible for the fall and April which caused to conduct concussion. It is also likely responsible for the incident yesterday which caused the elevation in the troponin and the wall motion disturbances. She probably embolized down her LAD causing the cardiac incident yesterday. She needs closure of the atrial septal defect. This will need to be done in [place]. In the meantime in order to be complete we can perform coronary angiography but I am virtually certain this is an embolic phenomenon. She will then need to be anticoagulated. Consult Attestations 2 Medical Necessity Statement: Hospitalization for management of paradoxical emboli and High Time for a total of 50 minutes, includes reviewing past or interval history, examining/interviewing patient, placing orders, counseling patient/family/other support, updating patient/family/other support, discussing plan of care with staff, communicating with other healthcare providers and documenting encounter Diagnoses HTN (hypertension), benign I10 Non-ST elevation (NSTEMI) myocardial infarction I21.4 Acute right arterial ischemic stroke, middle cerebral artery (MCA) I63.511 Concussion with loss of consciousness of 30 minutes or less, subsequent encounter S06.0X1D Encounter type: subsequent encounter Loss of consciousness presence/duration: with LOC of 30 min or less Paradoxical embolism I74.9
--- NOTE | 2023-08-10 11:42 | XACV_ITS ---
Exam Room: 2 Ht: 170 cm Wt: 60 kg BSA: 1.68 m2 Gender: Female : 1940 Any Known Allergies: Other Exam Priority: Routine Procedure(s): Procedure Description: Diagnostic procedure Procedure Description: Coronary Angiography WAGNERRandye; Diagnostic Cath Status: Elective Diagnostic Findings * Patient with paradoxical emboli causing strokes and likely an embolus causing a myocardial infarction. Angiography done to ensure there is no significant coronary disease. * Procedure done from the right radial artery. Coronary angiography reveals left coronary artery dominance. The right coronary artery is normal and is a small nondominant vessel. The left main coronary artery is normal and bifurcates into the left anterior descending and circumflex. The circumflex is a very large artery and is the dominant vessel and is without any obstruction. The LAD is also patent. There is some minor luminal irregularities but no significant stenoses. There is no evidence of any residual thrombus. Conclusions 1. Paradoxical emboli secondary to a patent foramen ovale causing embolic phenomenon down the LAD. Normal coronary arteries. Recommendations * PFO closure. Interventional RX Recommendation: medical therapy and/or counseling Diagnostic RX Recommendation: medical therapy and/or counseling Anticoagulation: Heparin Pressures Phase:Rest AO : 99 / 75 ( 87 ) @ 1:44:00 PM Clinical Evaluation EBL: 5mL-10mL Procedural Details Procedure Consent Obtained. Admit Source: In Patient. Pre-Procedure Time Out. Identified patient by full name and date of as verbalized by the patient/guarantor. Does the consent match the physician's order: Yes. Accurate & Complete Informed Consent: Yes. Inpatient/Outpatient History & Physical on Chart: Yes. If H&P is completed, is and addenduem needed: No; If yes, is the addendum complete: N/A. Visualize and Verify Site with Patient/Guarantor: N/A. Relevant Radiology Images available: Yes. Pre-op teaching completed and patient verbalized understanding. The risks, benefits, and alternatives of sedation and/or procedure were discussed by physician. The patient agrees to continue. Procedure started. [facility] Clinical Fraility Score: 3: Managing Well. 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 Chest Pain Symptom Assessment: Typical Angina Symptoms. Cardiovascular Instability: Yes, if yes, Persistant Ischemic Symptoms. Correct patient, site and procedure confirmed by cath team. Current diagnosis: NSTEMI. PERRLA. Strong, equal hand engine generator assembler bilaterally. Lungs clear x 5 lobes. IV Site on Arrival: 20 gauge in the right hand. IV Fluids: 0.9% NaCl at KVO. 400 mL infused prior to laborer cheesemaking. Pre Procedural Pulses: right radial was 2+. Pre Procedural Pulses: bilateral dorsalis pedis was 2+. Oxygen started at 2liters/min via nasal canula. right groin was prepped with chloroprep then draped in the usual sterile fashion. right radial was prepped with chloroprep then draped in the usual sterile fashion. Physician notified. Baseline sample Acquired. HR: 58 BPM. Physician arrived. Physician scrubbed in. Immediate Pre-Procedure Time Out. Correct Patient: Yes; Correct Procedure: Yes; Correct Site: Yes; Correct Patient Position: Yes; Correct Supplies: Yes; Dried Flammable Prep: Yes; Blood Products Available: N/A;. Lidocaine 1% infiltrated to the right radial. Arterial access obtained. A 5 honduran TIG catheter in over wire. Multiple views taken of right coronary artery. Catheter redirected to the LCA. Multiple views taken of left coronary artery. Catheter removed over the exchange wire. Physician scrubbed out. A TR Band was successful obtaining hemostatsis at the Right Radial artery insertion site. Post Procedure: Pulses reassessed and unchanged. PERRLA. Strong, equal hand engine generator assembler bilaterally. No VTE prophylaxis required. Medication's Wasted: Lidocaine 1% = 18 mL. Medication's Wasted: Other = Versed 1 mg. Medication's Wasted: Other = FEntanyl 50 mcg. Medication's Wasted: Nitro = 49.8 mg. Medication's Wasted: Heparin = 3000 u. Total IV fluids: 20 mL. PCI Indication: NSTE. Post-op diagnosis: Normal coronaries. Complications: none. Estimated blood loss: 5mL-10mL. Responsiveness - Normal response to verbal stimuli; alert and oriented, PERRLA. Airway - Unaffected, no intervention required; spontaneous ventilation. Circulation: W/N/L, pulses unchanged. Nausea/Vomiting: No. Procedure completed. Patient transferred [facility]. Vital chart was stopped. Access Site Site: Right Radial artery Sheath Size: 6 Fr Hemostasis Method: TR Band Hemostasis Success: Successful Procedure Medications Start: 12:20 PM Stop: 12:20 PM Medication: Versed Amount: 1 mg Route: I.V. Start: 12:20 PM Stop: 12:20 PM Medication: Fentanyl Amount: 50 mcg Start: 12:40 PM Stop: 12:40 PM Medication: Nitrogylcerin Amount: 200 mcg Route: I.A. Start: 12:43 PM Stop: 12:43 PM Medication: Heparin Amount: 3000 units Route: I.V. I, the attending physician, have reviewed and verified all procedure medications. Yes, all medications given per verbal order History/Risk Factors Hypertension: Yes Dyslipidemia: No Peripheral Arterial Disease (PAD): No Myocardial Infarction ([place]): No Obesity: No Renal Disease: No Tobacco Use: Never Prior Interventions PCI: No CABG: No Valve Surgery: No Report Signatures Finalized by Dr. Cole Diaz MD on 08/10/2023 01:25 PM
--- NOTE | 2023-08-10 13:28 | PM.MISC ---
Miscellaneous Note Note: As I expected, the patient's coronary arteries are normal. She is having paradoxical emboli across the patent foramen ovale causing both strokes and yesterday causing an LAD distribution infarct. The thrombus has recanalized and is no longer present, as expected. Her left ventricular function should return toward normal. I have called [facility] and made arrangements for transfer. They have accepted her. They will have a bed for her later today. I have also made arrangements to have the cardiac catheterization films and the echoes electronically transferred. In the meantime she is to remain on aspirin, Plavix and full dose Lovenox. She will need a nonsurgical PFO closure.
--- NOTE | 2023-08-10 14:26 | P.PN_ITS ---
Subjective 2 Subjective: Patient was seen this morning, no chest pain overnight, no fevers, no chills no nausea, no vomiting, no chest pain, currently n.p.o., awaiting cardiology's consultation, Vitals/I&O/Wt Last Vital Signs Temp 97.5 F L 08/10/23 12:10 Pulse 54 L 08/10/23 13:20 Resp 20 H 08/10/23 13:20 BP 90/65 08/10/23 13:20 Pulse Ox 94 08/10/23 13:20 O2 Del Method Room Air 08/10/23 13:00 08/09/23 08/10/23 08/10/23 22:59 06:59 14:59 Intake Total 242.1 / 242.1 120 / 362.1 352.083 / 352.083 Balance 242.1 / 242.1 120 / 362.1 352.083 / 352.083 Weight last 48 hrs Weight 59.874 kg Weight 59.988 kg Weight 57.606 kg Physical Exam 2 Const: COMMON NORMALS: no acute distress and patient oriented x3 Resp: COMMON NORMALS: normal respiratory effort, No retractions, No use of accessory muscles and clear to auscultation bilaterally AUSCULTATION: clear to auscultation bilaterally Cardio: COMMON NORMALS: regular rate, regular rhythm, S1 normal heart sound present and S2 normal heart sound present RATE: regular rate RHYTHM: r egular rhythm HEART SOUNDS: S1 normal heart sound present and S2 normal heart sound present GI: COMMON NORMALS: Normal to inspection, nondistended, normoactive bowel sounds present and non-tender Extremity: COMMON NORMALS: no pedal edema Neuro: COMMON NORMALS: patient oriented x3 Psych: COMMON NORMALS: mental status grossly normal Data 08/10/23 06:37 08/10/23 06:37 Micro: Microbiology 08/09/23 15:50 Blood Culture - Preliminary Blood SPECIMEN COLLECTED 08/09/23 15:44 Blood Culture - Preliminary Blood SPECIMEN COLLECTED A&P Assessment and plan (1) HTN (hypertension), benign: (2) Orthostatic hypotension: (3) Hypotensive episode: (4) Non-ST elevation (NSTEMI) myocardial infarction: (5) Hypothalamic hypothyroidism: (6) Benign positional vertigo: Qualifiers: Laterality: unspecified laterality Qualified Code(s): H81.10 - Benign paroxysmal vertigo, unspecified ear (7) UTI (urinary tract infection): Plan #Chest pain, NSTEMI, Type 1 VS Type 2 #History of be BPV #History of hypothyroidism #History of seizures, recent stroke, concern for paradoxical embolus, PFO #History of orthostatic hypotension #Hypertension ? NSTEMI ? No neurological focal deficits at this time ? Blood pressure has been stable since she got to the ER. ? Check TSH 1.6, lipid profile within normal limits, hemoglobin A1C 5.3 ? Check orthostatic vitals ? Check serial EKGs ? Continue therapeutic Lovenox ? Start aspirin, Plavix 75 daily. ? Placed on atorvastatin 80 -therapeutic Lovenox. ? Hold off on beta-prabhjot since patient is slightly bradycardic. 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 ? Check echo to rule out wall motion abnormalities, cardiology review of films, concerns for paradoxical embolus from PFO causing patient's recent strokes, continue anticoagulant therapy, making arrangements for possible transfer for consideration of PFO closure awaiting cardiac catheterization ? cardiac catheterization tomorrow . Full Code DVT PPX: THerapeutic lovenox Attestations 2 Medical Necessity Statement*: Patient requires hospitalization for cardiac catheterization, concerns for paradoxical embolus, given recent history of strokes, PFO Diagnoses HTN (hypertension), benign I10 Orthostatic hypotension I95.1 Hypotensive episode I95.9 Non-ST elevation (NSTEMI) myocardial infarction I21.4 Hypothalamic hypothyroidism E03.8 Benign paroxysmal positional vertigo, unspecified laterality H81.10 Laterality: unspecified laterality UTI (urinary tract infection) N39.0
--- NOTE | 2023-08-10 14:33 | USR_ITS ---
PROCEDURE INFORMATION: Exam: US Duplex Lower Extremity Veins, Bilateral Exam date and time: 08/10/2023 4:11 PM Age: 83 years old Clinical indication: Other: Possible dvt; Additional info: Paradoxical embolus concerns TECHNIQUE: Imaging protocol: Real-time duplex ultrasound of the bilateral extremities with 2-D subramanian scale, color Doppler flow and spectral waveform analysis including responses to compression and other maneuvers (when performed) with image documentation. Complete exam focused on the lower extremity veins. COMPARISON: No relevant prior studies available. FINDINGS: Right deep veins: Unremarkable. The common femoral, femoral, proximal profunda femoral and popliteal veins are patent without thrombus. Normal Doppler waveforms. Normal compressibility and/or augmentation response. Left deep veins: Unremarkable. The common femoral, femoral, proximal profunda femoral and popliteal veins are patent without thrombus. Normal Doppler waveforms. Normal compressibility and/or augmentation response. Superficial veins: Greater saphenous veins at the saphenofemoral junctions are patent bilaterally without thrombus. Soft tissues: Unremarkable. US/CV venous duplex [facility] [id number] IMPRESSION: No evidence of deep vein thrombosis.
[2023-08-10] MEDS: cefTRIAXone 1,000 MG in sodium chloride 0.9% (plus) 50 ML 100 MG IV (18:29)
--- NOTE | 2023-08-10 22:29 | PC.NURSE ---
Patient belonging sent with family member.
--- NOTE | 2023-08-15 15:13 | P.TS_ITS ---
Transfer Summary Providers Date of Admission: 08/09/23 20:39 Date of Discharge/Transfer: 08/15/23 Attending Provider at Admission: iM Damon MD Attending Provider at Transfer: Phuc Lobo MD Primary Care Provider: Saray Breen MD Transfer Plans: Anticipated date of transfer: 08/15/23 . Diagnoses at Discharge Discharge Diagnosis (1) HTN (hypertension), benign: Status: Acute (2) Orthostatic hypotension: Status: Acute (3) Hypotensive episode: Status: Acute (4) Non-ST elevation (NSTEMI) myocardial infarction: Status: Acute (5) Hypothalamic hypothyroidism: Status: Acute (6) Benign positional vertigo: Status: Acute Qualifiers: Laterality: unspecified laterality Qualified Code(s): H81.10 - Benign paroxysmal vertigo, unspecified ear (7) UTI (urinary tract infection): Status: Acute Reason for Visit Reason for Visit outpatient echo sent over,bp low chest pain, dizzy Hospital Course Hospital Course Jayne Pepper is a 83 year old female with past medical history of hypothyroidism, occipital headache, orthostatic hypotension, hypertension, hypothalamic hypothyroidism who who 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 She suddenly developed chest pain and weakness and at that time her blood pressure dropped to 60s or 70s systolic. She became acutely lightheaded and could not stand up. She was sent to emergency room for evaluation prior to going home. In the ER patient did complain of weakness but chest pain had resolved. She was not altered and alert oriented x 3. No focal neurological deficits. Denied any chest pain, shortness of breath nausea vo miting abdominal pain fever. Patient has no known history of heart disease. ER course on arrival blood pressure 147/87, pulse 56, saturating 95% on room air. Initial EKG showed rate [address] changes. Chest x-ray showed no acute process. CT head showed no acute hemorrhage or infarct. UA abnormal. Patient was given a dose of Rocephin. Delta troponin at 2 hours was 40+. 6-hour troponin is pending at this time. Patient remained stable and has not had any further hypotensive episodes. She was also given a dose of Lovenox. Patient was admitted to [facility] for chest pain, NSTEMI, managed on therapeutic Lovenox, aspirin, statin, cardiology was consulted, underwent coronary angiography which was within normal limits Patient's cardiac echocardiogram showed patent foramen ovale, given patient's chest pain complaints, elevated troponins, recent history of a stroke and there was concern of paradoxical emboli across patent foramen ovale, causing stroke, and also concerns for LAD distribution infarct with thrombus that had recanalized and is no longer present. Cardiology made arrangements to transfer to [facility] for PFO closure considerations, patient was transferred to [facility] Physical Exam Const: COMMON NORMALS: no acute distress and patient oriented x3 Resp: COMMON NORMALS: normal respiratory effort, No retractions, No use of accessory muscles and clear to auscultation bilaterally AUSCULTATION: clear to auscultation bilaterally Cardio: COMMON NORMALS: regular rate, regular rhythm, S1 normal heart sound present and S2 normal heart sound present RATE: regular rate RHYTHM: regular rhythm HEART SOUNDS: S1 normal heart sound present and S2 normal heart sound present GI: COMMON NORMALS: Normal to inspection, nondistended, normoactive bowel sounds present and non-tender Extremity: COMMON NORMALS: no pedal edema Neuro: COMMON NORMALS: patient oriented x3 Psych: COMMON NORMALS: mental status grossly normal TS Data Studies Completed and Pending Pending at discharge Category Date Time Status Sestamibi Stress Test Request Routine Exams 08/09/23 22:10 Stop Req Completed Studies During Hospitalization Category Date Time Status CT head wo con* [id number] Stat Cat Scan 08/09/23 15:25 Completed [employer] request for service Routine Exams 08/10/23 11:42 Completed XR chest 1V portable [id number] Stat Exams 08/09/23 15:25 [place] [id number] Routine Ultrasound 08/10/23 14:33 Completed CV. echo complete* [id number] Stat Ultrasound 08/09/23 20:10 Completed Laboratory Last Values WBC 6.11 10^3/uL (3.29-11.43) 08/10/23 06:37 RBC 4.41 10^6/uL (3.85-5.65) 08/10/23 06:37 Hgb 14.20 g/dL (11.27-16.99) 08/10/23 06:37 Hct 42.0 % (36-47) 08/10/23 06:37 MCV 95.2 fl (85-98) 08/10/23 06:37 MCH 32.2 pg (27-33) 08/10/23 06:37 MCHC 33.8 g/dL (30-55) 08/10/23 06:37 RDW 12.0 % (12.1-15.1) L 08/10/23 06:37 Plt Count 209 10^3/cmm (157-399) 08/10/23 06:37 MPV 11.8 fL (7.4-10.4) H 08/10/23 06:37 Neut % (Auto) 53.9 % 08/10/23 06:37 Lymph % (Auto) 32.7 % 08/10/23 06:37 [place] % (Auto) 9.8 % 08/10/23 06:37 Eos % (Auto) 2.6 % 08/10/23 06:37 Baso % (Auto) 0.8 % 08/10/23 06:37 Neut # (Auto) 3.29 10^3/uL (1.8-7.7) 08/10/23 06:37 Lymph # (Auto) 2.0 10^3/uL (0.8-4.8) 08/10/23 06:37 [place] # (Auto) 0.6 10^3/uL (0.2-0.9) 08/10/23 06:37 Eos # (Auto) 0.2 10^3/uL (0.0-0.8) 08/10/23 06:37 Baso # (Auto) 0.1 10^3/uL (0.0-0.1) 08/10/23 06:37 Nucleated RBC % (auto) 0 % 08/10/23 06:37 Nucleated RBCs # 0.0 /100WBC 08/10/23 06:37 Sodium 141 mmol/L (136-145) 08/10/23 06:37 Potassium 3.8 mmol/L (3.5-5.1) 08/10/23 06:37 Chloride 105 mmol/L (98-107) 08/10/23 06:37 Carbon Dioxide 26 mmol/L (22-29) 08/10/23 06:37 Anion Gap 13.8 (5-19) 08/10/23 06:37 BUN 12 mg/dL (8-23) 08/10/23 06:37 Creatinine 0.7 mg/dL (0.5-0.9) 08/10/23 06:37 GFR Calculation Not Reportable 08/10/23 06:37 Glucose 89 mg/dL (65-115) 08/10/23 06:37 Estimat Average Glucose 105 08/09/23 15:44 Hemoglobin A1c 5.3 % (4.0-6.0) 08/09/23 15:44 Calculated Osmolality 291 mOsm/kg (285-295) 08/10/23 06:37 Lactic Acid 1.2 mmol/L (0.5-2.2) 08/09/23 15:44 Calcium 9.0 mg/dL (8.5-10.5) 08/10/23 06:37 Magnesium 2.0 mg/dL (1.7-2.3) 08/10/23 06:37 Total Bilirubin 0.6 mg/dL (0.15-1.2) 08/09/23 17:49 AST 16 U/L (0-32) 08/09/23 17:49 ALT 12 U/L (0-33) 08/09/23 17:49 Alkaline Phosphatase 58 U/L (35-105) 08/09/23 17:49 Troponin T 5th Gen ng/L 73 ng/L (0-10) H 08/10/23 06:37 Troponin T Baseline 10 ng/L (0-10) 08/09/23 15:44 Troponin T 120 Minute 50.46 ng/L (0-10) H 08/09/23 17:49 Delta Troponin T 40.46 ABS# (0-10) H* 08/09/23 17:49 C-Reactive Protein 3.0 mg/L (0.0-4.9) 08/09/23 15:44 Total Protein 6.8 g/dL (6.6-8.7) 08/09/23 17:49 Albumin 4.3 g/dL (3.5-5.2) 08/09/23 17:49 Globulin 2.5 g/dL (1.3-4.6) 08/09/23 17:49 Triglycerides 77 mg/dL (0-150) 08/09/23 17:49 Cholesterol 209 mg/dL (0-200) H 08/09/23 17:49 LDL Cholesterol, Calc 105 mg/dL (50-129) 08/09/23 17:49 Total VLDL Cholesterol 15 mg/dL (0-30) 08/09/23 17:49 HDL Cholesterol 89 mg/dL (60-100) 08/09/23 17:49 Cholesterol/HDL Ratio 2.35 mg/dL (0.0-4.40) 08/09/23 17:49 Procalcitonin 0.02 ng/mL (0-0.5) 08/09/23 17:49 TSH 1.60 uIU/mL (0.27-4.20) 08/09/23 17:49 Free T4 1.84 ng/dL (0.82-1.77) H 08/09/23 17:49 Urine Color Yellow (Yellow) 08/09/23 17:05 Urine Appearance Slightly cloudy (CLEAR) 08/09/23 17:05 Urine pH 5 (5-7) 08/09/23 17:05 Ur Specific [place] 1.020 (1.005-1.030) 08/09/23 17:05 Urine Protein Neg (Negative) 08/09/23 17:05 Urine Glucose (UA) Norm (Normal) 08/09/23 17:05 Urine Ketones 1+ (Negative) H 08/09/23 17:05 Urine Blood Neg (Negative) 08/09/23 17:05 Urine Nitrate Negative (Negative) 08/09/23 17:05 Urine Bilirubin Neg (Negative) 08/09/23 17:05 Urine Urobilinogen Norm mg/dL (Negative) 08/09/23 17:05 Ur Leukocyte Esterase 1+ (Negative) H 08/09/23 17:05 Urine RBC 0-4 /hpf (0-2) H 08/09/23 17:05 Urine WBC 10-15 /hpf (0-5) H 08/09/23 17:05 Ur Squamous Epith Cells 0-4 /hpf (0-5) H 08/09/23 17:05 Amorphous Sediment Not Reportable 08/09/23 17:05 Urine Bacteria Trace /hpf (NONE) 08/09/23 17:05 Urine Mucus Trace /hpf 08/09/23 17:05 Radiology Impressions Chest X-Ray 08/09/23 15:25 IMPRESSION: No acute findings. Head CT 08/09/23 15:25 IMPRESSION: No acute intracranial abnormality. Venous Duplex 08/10/23 14:33 IMPRESSION: No evidence of deep vein thrombosis. Recent Clincial Data Last Vital Signs Temp 97.8 F 08/10/23 22:28 Pulse 63 08/10/23 22:28 Resp 18 08/10/23 22:28 BP 109/69 08/10/23 22:28 Pulse Ox 95 08/10/23 22:28 O2 Del Method Room Air 08/10/23 15:42 Vitals Last Vital Signs Temp 97.8 F 08/10/23 22:28 Pulse 63 08/10/23 22:28 Resp 18 08/10/23 22:28 BP 109/69 08/10/23 22:28 Pulse Ox 95 08/10/23 22:28 O2 Del Method Room Air 08/10/23 15:42 TS Medications Medications Discontinued Medications Aspirin (Aspirin 81 Mg Chew Tablet) 324 mg PO NOW ONE Stop: 08/09/23 19:03 Last Admin: 08/09/23 19:13 Dose: 324 mg Aspirin (Aspirin 81 Mg Ec Tablet) 81 mg PO DAILY [facility] Last Admin: 08/10/23 09:14 Dose: 81 mg Atorvastatin Calcium (Atorvastatin 40 Mg Tablet) 80 mg PO BEDTIME [facility] Last Admin: 08/09/23 20:44 Dose: 80 mg Ceftriaxone Sodium (Ceftriaxone 1,000 Mg Sdv) 500 mg IVP ONCE ONE; Protocol Stop: 08/09/23 18:47 Last Admin: 08/09/23 19:04 Dose: 500 mg Clopidogrel Bisulfate (Clopidogrel 300 Mg Tablet) 300 mg PO ONCE ONE Stop: 08/09/23 20:11 Last Admin: 08/09/23 20:44 Dose: 300 mg Clopidogrel Bisulfate (Clopidogrel 75 Mg Tablet) 75 mg PO DAILY [facility] Last Admin: 08/10/23 09:14 Dose: 75 mg Enoxaparin Sodium (Enoxaparin 60 Mg/0.6 Ml Syringe) 60 mg SUBCUT ONCE ONE Stop: 08/09/23 19:03 Last Admin: 08/09/23 19:13 Dose: 60 mg Enoxaparin Sodium (Enoxaparin 100 Mg/Ml Syringe) 60 mg 1 mg/kg (60 mg) SUBCUT Q12H [facility] Last Admin: 08/10/23 18:31 Dose: 60 mg Fentanyl (Fentanyl 50 Mcg/Ml Inj 2ml) Confirm Administered Dose 100 mcg .ROUTE .STK-MED ONE Stop: 08/10/23 11:47 Heparin Sodium (Porcine) (Heparin 5,000 Unit/Ml Inj 1 Ml) Confirm Administered Dose 5,000 unit .ROUTE .STK-MED ONE Stop: 08/10/23 11:47 Heparin Sodium (Porcine) (Heparin 5,000 Unit/Ml Inj 1 Ml) Confirm Administered Dose 5,000 unit .ROUTE .STK-MED ONE Stop: 08/10/23 12:43 Ceftriaxone Sodium 1,000 mg/ (Sodium Chloride) 50 mls @ 100 mls/hr IV ONCE ONE; Protocol Stop: 08/09/23 18:23 Last Admin: 08/09/23 17:57 Dose: Not Given Ceftriaxone Sodium 1,000 mg/ (Sterile Water) 2.1 mls @ 0 mls/hr IM ONCE ONE Stop: 08/09/23 17:59 Last Infusion: 08/09/23 21:48 Dose: Infused Ceftriaxone Sodium 1,000 mg/ (Sodium Chloride) 50 mls @ 100 mls/hr IV Q24H LIAN; Protocol Last Infusion: 08/10/23 19:17 Dose: Infused Sodium Chloride (Sodium Chloride 0.9%) 1,000 mls @ 75 mls/hr IV .[id number] LIAN Last Infusion: 08/10/23 18:18 Dose: Infused Lidocaine HCl (Xylocaine) Confirm Administered Dose 20 mls @ as directed .ROUTE .STK-MED ONE Stop: 08/10/23 11:47 Magnesium Hydroxide (Magnesium Hydroxide 30 Ml Udc) 30 ml PO DAILY PRN PRN Reason: CONSTIPATION Midazolam HCl (Midazolam 1 Mg/Ml Inj 2 Ml) Confirm Administered Dose 2 mg .ROUTE .STK-MED ONE Stop: 08/10/23 11:47 Nitroglycerin (Nitroglycerin 5 Mg/Ml Sdv 10 Ml) Confirm Administered Dose 50 mg .ROUTE .STK-MED ONE Stop: 08/10/23 11:47 Allergies topiramate [From Topamax] Allergy (Verified 08/09/23 15:09) nausea Home Medications vitamins A,C,O-[id number]-[id number] 4,296 mcg-226 mg-90 mg capsule (ICaps AREDS) 1 cap PO BID 08/19/21 [History Confirmed 08/09/23] multivitamin with minerals-folic acid 120 mcg chewable tablet (Adult Multivitamin Gummies) 1 tab PO DAILY 10/25/22 [History Confirmed 08/09/23] latanoprost 0.005 % eye drops 1 drp ophthalmic (eye) QPM 04/27/23 [History Confirmed 08/09/23] levothyroxine 125 mcg capsule 125 mcg PO DAILY #90 caps 05/02/23 [Rx Confirmed 08/09/23] oxycodone-acetaminophen 5 mg-325 mg tablet 1 tab PO Q6H PRN pain 1 month #60 tabs 05/05/23 [Rx Confirmed 08/09/23] aspirin 81 mg tablet 81 mg PO DAILY 08/09/23 [History Confirmed 08/09/23] Discharge Plan Discharge Patient Disposition: Home Condition: Stable Prescriptions: No Action multivit with min-folic acid [Adult Multivitamin Gummies] 120 mcg tablet,chewable 1 tab PO DAILY ICaps AREDS 14,320-226-200 tetj-fg-[id number] capsule 1 cap PO BID levothyroxine 125 mcg capsule 125 mcg PO DAILY Qty: 90 3RF oxycodone-acetaminophen 5-325 mg tablet 1 tab PO Q6H PRN (Reason: pain) 30 Days Qty: 60 0RF latanoprost 0.005 % drops 1 drp ophthalmic (eye) QPM aspirin 81 mg Tablet 81 mg PO DAILY Discharge Orders: Discharge Order (Routine); Ordered 08/15/23 Ordered By: Phuc Lobo Referrals: Saray Breen MD [Primary Care Provider] - Patient Instructions: Opioid Safety Transfer Attestations Time Spent in Transfer Care: greater than 30 min Quality Metrics Clinical Quality Measures [ No reported AMI, CVA or VTE this stay] Coding Level of Care Code 55649 Total time (in minutes) for Discharge: 35 Diagnoses HTN (hypertension), benign I10 Orthostatic hypotension I95.1 Hypotensive episode I95.9 Non-ST elevation (NSTEMI) myocardial infarction I21.4 Hypothalamic hypothyroidism E03.8 Benign paroxysmal positional vertigo, unspecified laterality H81.10 Laterality: unspecified laterality UTI (urinary tract infection) N39.0
== END 2023-08-10 19:30 | disposition short-term general hospital (02) | DRG 281 ==
LOC: ER 20:18 → MEDSURG 20:41
PROVIDERS: Internal Medicine Cardiovascular Disease; Admitting Provider Internal Medicine; Emergency Provider Emergency Medicine; PCP Family Medicine; Visit Provider Family Medicine
PROC: B2111ZZ Fluoroscopy of Multiple Coronary Arteries using Low Osmolar Contrast (ICD-10-PCS; principal; 2023-08-10 12:00)
DX: I74.8 Embolism and thrombosis of other arteries (principal); N39.0 Urinary tract infection, site not specified; I21.4 Non-ST elevation (NSTEMI) myocardial infarction; Q21.12 Patent foramen ovale; I10 Essential (primary) hypertension; I95.1 Orthostatic hypotension; E03.9 Hypothyroidism, unspecified; H81.10 Benign paroxysmal vertigo, unspecified ear; I69.393 Ataxia following cerebral infarction; R41.3 Other amnesia
CPT/HCPCS: 36415; 70450; 71045; 80048; 80053; 80061; 81001; 83036; 83605; 83735; 84145; 84439; 84443; 84484; 85025; 86140; 87040; 93005; 93306; 93454; 93970; 96365; 96372; 96374; 96375; 99152; 99153; 99285; C1769; C1887; C1894; J0696; J1644; J1650; J2250; J3010; J3490; J7030; Q9967

== ENCOUNTER → 2023-09-06 11:01 | Outpatient (BNVA) | payer MEDICARE, OTHER, SELFPAY | PROVIDERS: PCP Family Medicine; Visit Provider Nurse Practitioner Family | DX: L82.1 Other seborrheic keratosis (principal); D22.5 Melanocytic nevi of trunk; L57.8 Other skin changes due to chronic exposure to nonionizing radiation; L81.4 Other melanin hyperpigmentation; S40.262A Insect bite (nonvenomous) of left shoulder, initial encounter; S70.362A Insect bite (nonvenomous), left thigh, initial encounter; S70.261A Insect bite (nonvenomous), right hip, initial encounter; S40.261A Insect bite (nonvenomous) of right shoulder, initial encounter; S30.861A Insect bite (nonvenomous) of abdominal wall, initial encounter; X58.XXXA Exposure to other specified factors, initial encounter | CPT/HCPCS: 10120; 99213 ==

== ENCOUNTER → 2023-12-06 14:28 | Outpatient (BNVA) | payer MEDICARE, OTHER, SELFPAY | PROVIDERS: PCP Family Medicine; Visit Provider Dermatology | DX: L82.0 Inflamed seborrheic keratosis (principal); L81.4 Other melanin hyperpigmentation; L57.8 Other skin changes due to chronic exposure to nonionizing radiation; L82.1 Other seborrheic keratosis; D22.5 Melanocytic nevi of trunk; L57.0 Actinic keratosis | CPT/HCPCS: 17000; 17110; 99213 ==

== ENCOUNTER → 2024-06-14 12:28 | Outpatient (BNVA) | payer MEDICARE, OTHER, SELFPAY | PROVIDERS: PCP Family Medicine; Referring Provider Family Medicine; Visit Provider Internal Medicine | DX: Q21.12 Patent foramen ovale (principal); I10 Essential (primary) hypertension; Z86.718 Personal history of other venous thrombosis and embolism | CPT/HCPCS: 99214 ==

== ENCOUNTER 2024-07-24 09:06 | Outpatient (CLI) | payer MEDICARE, OTHER, SELFPAY ==
--- NOTE | 2024-07-24 09:15 | USCV_ITS ---
Jayne Pepper Age: 84 Gender: F : 1940 Exam Date: 07/24/2024 09:24 Ordering Phys: Jacques Daley M.D ([email or web address]) Technologist: ADRIANNA Exam Location: [facility] [place] Indication: CP BP: 118 / 70 HR: 54 Rhythm: Sinus Technical Quality: Adequate MEASUREMENTS (Male / Female) Normal Values 2D ECHO LV Diastolic Diameter PLAX 4.3 cm 4.2 - 5.9 / 3.9 - 5.3 cm IVS Diastolic Thickness 0.7 cm 0.6 - 1.0 / 0.6 - 0.9 cm IVS Systolic Thickness 1.3 cm LVPW Diastolic Thickness 1.0 cm 0.6 - 1.0 / 0.6 - 0.9 cm LVPW Systolic Thickness 0.8 cm LVOT Diameter 2.0 cm LV Ejection Fraction 2D Teich 49.4 % LV Ejection Fraction MOD 4C 47.3 % LV Ejection Fraction MOD 2C 54.1 % LV Ejection Fraction 2C AL 54.2 % LA Diameter 3.0 cm RA Systolic Volume 4C AL 22.1 ml RA Systolic Volume 4C MOD 21.7 ml LA Sys Volume AL 16.7 cm cubed LA Sys Volume Index AL 10.6 cm cubed/m squared Aorta at Sinotubular Diameter 2.8 cm IVC Diameter 2.0 cm M-MODE LA Ao Ratio MM 0.8 AV Cusp Separation MM 1.3 cm DOPPLER AV Peak Velocity 77.0 cm/s LVOT Peak Velocity 62.0 cm/s AV Area Cont Eq vti 2.7 cm squared AV Area Cont Eq pk 2.6 cm squared MV Peak Velocity 88.0 cm/s MV Area PHT 3.7 cm squared Mitral E to A Ratio 0.6 TV Peak Velocity 183.5 cm/s TR Peak Velocity 203.0 cm/s TR Peak Gradient 16.5 mmHg TV Peak E Velocity 73.0 cm/s PV Peak Velocity 75.0 cm/s FINDINGS Left Ventricle Left ventricle normal size. LV systolic function is mildly reduced with EF of 45-50%. Mild global hypokinesis. Grade 1 diastolic dysfunction. Right Ventricle Normal in size and function Right Atrium Normal in size Left Atrium Normal in size Mitral Valve Structurally normal mitral valve. Mild mitral regurgitation. Aortic Valve Aortic valve is thickened. No significant stenosis or regurgitation. Tricuspid Valve Mild tricuspid regurgitation. Pulmonary artery systolic pressure is normal Pulmonic Valve Not well visualized Pericardium Normal Aorta Normal in size IVC Appears to be normal CONCLUSIONS LV systolic function is mildly reduced with EF of 45-50% Grade 1 diastolic dysfunction Mild mitral regurgitation. Mild tricuspid regurgitation Compared to prior echocardiogram from 2023, LV systolic function appears to be slightly improved. Jacques Daley MD (Electronically Signed) Final Date: 05 August 2024 15:24 S
== END 2024-07-24 09:07 | disposition home or self-care (01) ==
PROVIDERS: PCP Family Medicine; Visit Provider Internal Medicine
DX: Q21.12 Patent foramen ovale (principal); R07.9 Chest pain, unspecified; R93.1 Abnormal findings on diagnostic imaging of heart and coronary circulation; I34.0 Nonrheumatic mitral (valve) insufficiency; I35.8 Other nonrheumatic aortic valve disorders; I07.1 Rheumatic tricuspid insufficiency
CPT/HCPCS: 93306

== ENCOUNTER → 2024-12-17 12:14 | Outpatient (BNVA) | payer MEDICARE, OTHER, SELFPAY | PROVIDERS: PCP Family Medicine; Visit Provider Dermatology | DX: L82.1 Other seborrheic keratosis (principal); D18.01 Hemangioma of skin and subcutaneous tissue; L81.4 Other melanin hyperpigmentation; L57.8 Other skin changes due to chronic exposure to nonionizing radiation; L82.0 Inflamed seborrheic keratosis; L29.89 Other pruritus; L53.8 Other specified erythematous conditions; D48.5 Neoplasm of uncertain behavior of skin; L57.0 Actinic keratosis | CPT/HCPCS: 11102; 17000; 17110; 99213 ==